=== PATIENT | female | born 1955 | race Caucasian/White ===

== ENCOUNTER → 2023-12-30 | Emergency (ER) | payer OTHER ==
[~2023-12-30] MED LIST: CEFTRIAXONE 1000 MG/VIAL ONE; LIDOCAINE 1% MPF 2 ML AMPULE ONE; SMZ./TMP. 800/160 MG TABLET ONE
--- OUTSIDE RECORDS SUMMARY | 2023-12-30 22:15 | XMS REPORT | Continuity of Care Document ---
Author Name Unknown Address [address] [facility] [address] [place] [address] [facility] thconnect Address [address] [facility] [address] [place] [address] Care Team Providers Care Central Station Operator Name Role Phone Sury Augustin Primary Care Physician Jennifer Cruz Attending Clinician Unavailable SURY AUGUSTIN Attending Clinician Unavailable SURY AUGUSTIN Attending Clinician Unavailable SAMIA SALCEDO Attending Clinician Unavailable Pob, Ad[facility] Lab Main Attending Clinician Unavailabl e Lab, Ang - Db Attending Clinician Unavailable Jessica Caceres MD Attending Clinician + [phone] RADIOLOGY Attending Clinician Unavailable Radiology Attending Clinician Unavailable Doctor Unassigned, [place] Attending Clinician U navailable Gurdeep Osborn Attending Clinician JESSICA Zeng Admitting Clinician UnavailSURY [place] Admitting Clinician Unavailable Gurdeep Osborn Admitting Clinician Mary Beth orozco Payers Payer Name Policy Type Policy Number Effective Date Expirati on Date Source [facility] [id number] 2023 00:00:00 Problems Condition Name Condition Details Condition Category Status Onset Date Resolution Date Last Treatment Date Treating Clinician Comments Source Nontraumat ic complete tear of left rotator cuff Nontraumat ic complete tear of left rotator cuff Disease Active 2022-11 00:00: 00 Last Assessmen t & Plan: Formattin g of this note might be different from the original. Surgery risks, benefits, and alternati ves were discussed with the patient regarding operative intervent ion. Risks include but are not limited to pain, bleeding, scarring, infection , damage to nerves, arteries, veins, failure of procedure , possible loosening , migration , or hardware failure, possible choice of implants ([place], [place] [employer] [place]), possible painful or prominent hardware, joint stiffness , need for further procedure s, nonunion, malunion, dislocati on, loss of limb, heart attack, stroke and . Patient voiced understan ding and wished to proceed with operative intervent ions.Left shoulder arthrosco py, SAD, biceps and labral debrideme nt, and rotator cuff repair [facility] Partial nontraumat ic tear of left rotator cuff Partial nontraumat ic tear of left rotator cuff Disease Active 07-17 00:00: 00 [facility] Impingemen t syndrome of shoulder, left Impingemen t syndrome of shoulder, left Disease Active 07-17 00:00: 00 Last Assessmen t & Plan: Formattin g of this note might be different from the original. Patient has attempted conservat prince measures including therapy, injection , and/or NSAIDs but is still having pain. We will obtain an MRI to further evaluate. [facility] Left shoulder pain Left shoulder pain Disease Active 07-17 00:00: 00 [facility] Left shoulder pain Left shoulder pain Disease Active 07-17 00:00: 00 [facility] Hypertensi on HTN (hypertens ion) Problem Active [facility] Sleep apnea Sleep apnea Problem Active [facility] Cholelithi asis without obstructio n [place] stone without cholecysti tis or obstructio n Problem Active [facility] [id number] Primary hypertensi on Problem Active [facility] [id number] BMI 50.0-59.9, adult Problem Active [facility] [id number] Primary osteoarthr itis of both knees Problem Active [facility] [id number] Mixed hyperlipid emia Problem Active [facility] [id number] Morbid (severe) obesity due to excess calories Problem Active [facility] No known active problems No known active problems Disease [facility] Allergies, Adverse Reactions, Alerts Allergy Name Allergy Type Status Severity Reaction(s) Onset Date Inactive Date Treating Clinician Comments Source No Known Allergie s DA Active U 2021-11 00:00: 00 [facility] NO KNOWN ALLERGIE S Drug Class Active [facility] Social History Social Habit Start Date Stop Date Quantity Comments Source Sexual orientation [facility] History of Tobacco Use [facility] Gender identity [facility] Alcoholic beverage intake 2023-11-19 00:00:00 2023-11-19 00:00:00 Lifetime non-drinker (finding) [facility] History of Social function 2023-11-11 00:00:00 2023-11-11 00:00:00 [facility] Alcohol intake 2023-10-05 00:00:00 2023-10-05 00:00:00 Lifetime non-drinker (finding) [facility] Exposure to SARS-CoV-2 (event) 2022-11-20 00:00:00 2022-11-30 13:29:00 Not sure [facility] Tobacco use and exposure 2022-11-30 00:00:00 2022-11-30 00:00:00 Smokeless tobacco non-user [facility] Sex assigned at 1955 00:00:00 1955 00:00:00 [facility] Smoking Status Start Date Stop Date Source Tobacco smoking consumption unknown [facility] Never smoked tobacco [facility] Medications Ordered Medication Name Filled Medication Name Start Date Stop Date Current Medication? Ordering Clinician Indication Dosage Frequency Signature (SIG) Comments Components Source lisinopril 40 MG tablet 11-11 14:34: 46 Yes 40mg Take 40 mg by mouth every night. [facility] loratadine (Claritin) 10 MG tablet 11-11 14:34: 46 Yes 10mg Take 10 mg by mouth. [facility] acetaminoph en (Tylenol) 500 MG tablet 2023-0 105 14:34: 46 Yes 500mg Q6H 500 mg every 6 (six) hours. [facility] atenoloL 25 mg tablet 2022-11 00:00: 00 Yes 25mg Take 1 tablet by mouth in the morning. [facility] atenoloL 25 mg tablet 2022-11 00:00: 00 Yes 25mg Take 1 tablet by mouth in the morning. [facility] atenoloL 25 mg tablet 2022-11 00:00: 00 Yes 25mg Take 1 tablet by mouth in the morning. [facility] atenoloL 25 mg tablet 2022-11 00:00: 00 Yes 25mg Take 1 tablet by mouth in the morning. [facility] atenoloL 25 mg tablet 2022-11 00:00: 00 Yes 25mg Take 1 tablet by mouth in the morning. [facility] atenoloL 25 mg tablet 2022-11 00:00: 00 Yes 25mg Take 1 tablet by mouth in the morning. [facility] atenoloL 25 mg tablet 2022-11 00:00: 00 Yes 25mg Take 1 tablet by mouth in the morning. [facility] atenoloL 25 mg tablet 2022-11 00:00: 00 Yes 25mg Take 1 tablet by mouth in the morning. [facility] atenoloL 25 mg tablet 2022-11 00:00: 00 Yes 25mg Take 1 tablet by mouth in the morning. [facility] atenoloL 25 mg tablet 2022-11 00:00: 00 Yes 25mg Take 1 tablet by mouth in the morning. [facility] atenoloL 25 mg tablet 2022-11 00:00: 00 Yes 25mg Take 1 tablet by mouth in the morning. [facility] atenoloL 25 mg tablet 2022-11 00:00: 00 Yes 25mg Take 1 tablet by mouth in the morning. [facility] atenoloL 25 mg tablet 2022-11 00:00: 00 Yes 25mg Take 1 tablet by mouth in the morning. [facility] atenoloL 25 mg tablet 2022-11 00:00: 00 Yes 25mg Take 1 tablet by mouth in the morning. [facility] atenoloL 25 mg tablet 2022-11 00:00: 00 Yes 25mg Take 1 tablet by mouth in the morning. [facility] atenoloL 25 mg tablet 2022-11 00:00: 00 Yes 25mg Take 1 tablet by mouth in the morning. [facility] atenoloL 25 mg tablet 2022-11 00:00: 00 Yes 25mg Take 1 tablet by mouth in the morning. [facility] lisinopril 40 MG tablet 2022-11 17:10: 16 Yes 40mg Take 40 mg by mouth every night. [facility] loratadine (Claritin) 10 MG tablet 2022-11 17:10: 16 Yes 10mg Take 10 mg by mouth. [facility] acetaminoph en (Tylenol) 500 MG tablet 2022-11 17:10: 16 Yes 500mg Q6H 500 mg every 6 (six) hours. [facility] traMADoL 50 mg tablet 2022-11 00:00: 00 Yes 50mg Take 1 tablet by mouth every 4 (four) hours as needed. [facility] traMADoL 50 mg tablet 2022-11 00:00: 00 Yes 50mg Take 1 tablet by mouth every 4 (four) hours as needed. [facility] traMADoL 50 mg tablet 2022-11 00:00: 00 Yes 50mg Take 1 tablet by mouth every 4 (four) hours as needed. [facility] traMADoL 50 mg tablet 2022-11 00:00: 00 Yes 50mg Take 1 tablet by mouth every 4 (four) hours as needed. [facility] traMADoL 50 mg tablet 2022-11 00:00: 00 Yes 50mg Take 1 tablet by mouth every 4 (four) hours as needed. [facility] traMADoL 50 mg tablet 2022-11 00:00: 00 Yes 50mg Take 1 tablet by mouth every 4 (four) hours as needed. [facility] tablet 2022-11 00:00: 00 Yes 50mg Take 1 tablet by mouth every 4 (four) hours as needed. [facility] tra[facility]AD[facility] mg tablet 2022-11 00:00: 00 Yes 50mg Take 1 tablet by mouth every 4 (four) hours as needed. [facility] tra[facility] mg tablet 2022-11 00:00: 00 Yes 50mg Take 1 tablet by mouth every 4 (four) hours as needed. [facility] traMADoL 50 mg tablet 2022-11 00:00: 00 Yes 50mg Take 1 tablet by mouth every 4 (four) hours as needed. [facility] traMADoL 50 mg tablet 2022-11 00:00: 00 Yes 50mg Take 1 tablet by mouth every 4 (four) hours as needed. [facility] traMADoL 50 mg tablet 2022-11 00:00: 00 Yes 50mg Take 1 tablet by mouth every 4 (four) hours as needed. [facility] traMADoL 50 mg tablet 2022-11 00:00: 00 Yes 50mg Take 1 tablet by mouth every 4 (four) hours as needed. [facility] traMADoL 50 mg tablet 2022-11 00:00: 00 Yes 50mg Take 1 tablet by mouth every 4 (four) hours as needed. [facility] traMADoL 50 mg tablet 2022-11 00:00: 00 Yes 50mg Take 1 tablet by mouth every 4 (four) hours as needed. [facility] traMADoL 50 mg tablet 2022-11 00:00: 00 Yes 50mg Take 1 tablet by mouth every 4 (four) hours as needed. [facility] traMADoL 50 mg tablet 2022-11 00:00: 00 Yes 50mg Take 1 tablet by mouth every 4 (four) hours as needed. [facility] traMADoL 50 mg tablet 2022-11 00:00: 00 Yes 50mg Take 1 tablet by mouth every 4 (four) hours as needed. [facility] traMADoL 50 mg tablet 2022-11 00:00: 00 Yes 50mg Take 1 tablet by mouth every 4 (four) hours as needed. [facility] traMADol (Ultram) 50 MG tablet 2022-11 00:00: 00 10-06 05:59 :00 No [id number] 50mg Q6H Take 1 tablet (50 mg total) by mouth every 6 (six) hours if needed for severe pain for up to 7 days. [facility] lisinopriL 40 mg tablet 07-18 00:00: 00 Yes [id number] 40mg Take 1 tablet by mouth at bedtime. [facility] lisinopriL 40 mg tablet 07-18 00:00: 00 Yes [id number] 40mg Take 1 tablet by mouth at bedtime. [facility] lisinopriL 40 mg tablet 07-18 00:00: 00 Yes [id number] 40mg Take 1 tablet by mouth at bedtime. [facility] lisinopriL 40 mg tablet 07-18 00:00: 00 Yes [id number] 40mg Take 1 tablet by mouth at bedtime. [facility] lisinopriL 40 mg tablet 07-18 00:00: 00 Yes [id number] 40mg Take 1 tablet by mouth at bedtime. [facility] lisinopriL 40 mg tablet 0 07-18 00:00: 00 Yes [id number] 40mg Take 1 tablet by mouth at bedtime. [facility] lisinopriL 40 mg tablet 0 07-18 00:00: 00 Yes [id number] 40mg Take 1 tablet by mouth at bedtime. [facility] lisinopriL 40 mg tablet 0 07-18 00:00: 00 Yes [id number] 40mg Take 1 tablet by mouth at bedtime. [facility] lisinopriL 40 mg tablet 0 07-18 00:00: 00 Yes [id number] 40mg Take 1 tablet by mouth at bedtime. [facility] lisinopriL 40 mg tablet 3-0 9-11 00:00: 00 Yes [id number] 40mg Take 1 tablet by mouth at bedtime. [facility] lisinopriL 40 mg tablet 3-0 9-11 00:00: 00 Yes [id number] 40mg Take 1 tablet by mouth at bedtime. [facility] lisinopriL 40 mg tablet 3-0 9-11 00:00: 00 Yes [id number] 40mg Take 1 tablet by mouth at bedtime. [facility] lisinopriL 40 mg tablet 3-0 9-11 00:00: 00 Yes [id number] 40mg Take 1 tablet by mouth at bedtime. [facility] lisinopriL 40 mg tablet 3-0 -11 00:00: 00 Yes [id number] 40mg Take 1 tablet by mouth at bedtime. [facility] lisinopriL 40 mg tablet 3-0 -11 00:00: 00 Yes [id number] 40mg Take 1 tablet by mouth at bedtime. [facility] lisinopriL 40 mg tablet 3-0 -11 00:00: 00 Yes [id number] 40mg Take 1 tablet by mouth at bedtime. [facility] lisinopriL 40 mg tablet 3-0 -11 00:00: 00 Yes [id number] 40mg Take 1 tablet by mouth at bedtime. [facility] lisinopriL 40 mg tablet 3-0 -11 00:00: 00 Yes [id number] 40mg Take 1 tablet by mouth at bedtime. [facility] lisinopriL 40 mg tablet 3-0 9-11 00:00: 00 Yes [id number] 40mg Take 1 tablet by mouth at bedtime. [facility] lisinopriL 40 mg tablet 3-0 9-11 00:00: 00 Yes [id number] 40mg Take 1 tablet by mouth at bedtime. [facility] lisinopriL 40 mg tablet 3-0 9-11 00:00: 00 Yes [id number] 40mg Take 1 tablet by mouth at bedtime. [facility] lisinopriL 40 mg tablet 07-18 00:00: 00 Yes [id number] 40mg Take 1 tablet by mouth at bedtime. [facility] lisinopriL 40 mg tablet 07-18 00:00: 00 Yes [id number] 40mg Take 1 tablet by mouth at bedtime. [facility] lisinopriL 40 mg tablet 07-18 00:00: 00 Yes [id number] 40mg Take 1 tablet by mouth at bedtime. [facility] lisinopriL 40 mg tablet 07-18 00:00: 00 Yes [id number] 40mg Take 1 tablet by mouth at bedtime. [facility] lisinopriL 40 mg tablet 07-18 00:00: 00 Yes [id number] 40mg Take 1 tablet by mouth at bedtime. [facility] lisinopril 40 MG tablet 07-12 11:20: 09 Yes 40mg Take 40 mg by mouth every night. [facility] loratadine (Claritin) 10 MG tablet 07-12 11:20: 09 Yes 10mg Take 10 mg by mouth. [facility] acetaminoph en (Tylenol) 500 MG tablet 07-12 11:20: 09 Yes 500mg Q6H 500 mg every 6 (six) hours. [facility] diclofenac 75 mg EC tablet 05-30 00:00: 00 Yes [id number] 75mg Take 1 tablet by mouth in the morning and 1 tablet in the evening. Take with meals. [facility] diclofenac 75 mg EC tablet 05-30 00:00: 00 Yes [id number] 75mg Take 1 tablet by mouth in the morning and 1 tablet in the evening. Take with meals. [facility] diclofenac 75 mg EC tablet 05-30 00:00: 00 Yes [id number] 75mg Take 1 tablet by mouth in the morning and 1 tablet in the evening. Take with meals. [facility] diclofenac 75 mg EC tablet 05-30 00:00: 00 Yes [id number] 75mg Take 1 tablet by mouth in the morning and 1 tablet in the evening. Take with meals. [facility] diclofenac 75 mg EC tablet 2022-0 05-30 00:00: 00 Yes [id number] 75mg Take 1 tablet by mouth in the morning and 1 tablet in the evening. Take with meals. [facility] diclofenac 75 mg EC tablet 2022-0 05-30 00:00: 00 Yes [id number] 75mg Take 1 tablet by mouth in the morning and 1 tablet in the evening. Take with meals. [facility] diclofenac 75 mg EC tablet 2022-0 05-30 00:00: 00 Yes [id number] 75mg Take 1 tablet by mouth in the morning and 1 tablet in the evening. Take with meals. [facility] diclofenac 75 mg EC tablet 2022-0 05-30 00:00: 00 Yes [id number] 75mg Take 1 tablet by mouth in the morning and 1 tablet in the evening. Take with meals. [facility] diclofenac 75 mg EC tablet 2022-0 05-30 00:00: 00 Yes [id number] 75mg Take 1 tablet by mouth in the morning and 1 tablet in the evening. Take with meals. [facility] diclofenac 75 mg EC tablet 2022-0 05-30 00:00: 00 Yes [id number] 75mg Take 1 tablet by mouth in the morning and 1 tablet in the evening. Take with meals. [facility] diclofenac 75 mg EC tablet 2022-0 05-30 00:00: 00 Yes [id number] 75mg Take 1 tablet by mouth in the morning and 1 tablet in the evening. Take with meals. [facility] diclofenac 75 mg EC tablet 3-0 24 00:00: 00 Yes [id number] 75mg Take 1 tablet by mouth in the morning and 1 tablet in the evening. Take with meals. [facility] diclofenac 75 mg EC tablet 3-0 24 00:00: 00 Yes [id number] 75mg Take 1 tablet by mouth in the morning and 1 tablet in the evening. Take with meals. [facility] diclofenac 75 mg EC tablet 2022-0 24 00:00: 00 Yes [id number] 75mg Take 1 tablet by mouth in the morning and 1 tablet in the evening. Take with meals. [facility] diclofenac 75 mg EC tablet 3-0 05-30 00:00: 00 Yes [id number] 75mg Take 1 tablet by mouth in the morning and 1 tablet in the evening. Take with meals. [facility] diclofenac 75 mg EC tablet 2022-0 05-30 00:00: 00 Yes [id number] 75mg Take 1 tablet by mouth in the morning and 1 tablet in the evening. Take with meals. [facility] diclofenac 75 mg EC tablet 2022-0 05-30 00:00: 00 Yes [id number] 75mg Take 1 tablet by mouth in the morning and 1 tablet in the evening. Take with meals. [facility] diclofenac 75 mg EC tablet 2022-0 05-30 00:00: 00 Yes [id number] 75mg Take 1 tablet by mouth in the morning and 1 tablet in the evening. Take with meals. [facility] diclofenac 75 mg EC tablet 2022-0 05-30 00:00: 00 Yes [id number] 75mg Take 1 tablet by mouth in the morning and 1 tablet in the evening. Take with meals. [facility] diclofenac 75 mg EC tablet 3-0 24 00:00: 00 Yes [id number] 75mg Take 1 tablet by mouth in the morning and 1 tablet in the evening. Take with meals. [facility] diclofenac 75 mg EC tablet 3-0 24 00:00: 00 Yes [id number] 75mg Take 1 tablet by mouth in the morning and 1 tablet in the evening. Take with meals. [facility] diclofenac 75 mg EC tablet 3-0 24 00:00: 00 Yes [id number] 75mg Take 1 tablet by mouth in the morning and 1 tablet in the evening. Take with meals. [facility] diclofenac 75 mg EC tablet 3-0 7-24 00:00: 00 Yes [id number] 75mg Take 1 tablet by mouth in the morning and 1 tablet in the evening. Take with meals. [facility] diclofenac 75 mg EC tablet 0 05-30 00:00: 00 Yes [id number] 75mg Take 1 tablet by mouth in the morning and 1 tablet in the evening. Take with meals. [facility] diclofenac 75 mg EC tablet 0 05-30 00:00: 00 Yes [id number] 75mg Take 1 tablet by mouth in the morning and 1 tablet in the evening. Take with meals. [facility] diclofenac 75 mg EC tablet 0 05-30 00:00: 00 Yes [id number] 75mg Take 1 tablet by mouth in the morning and 1 tablet in the evening. Take with meals. [facility] diclofenac (Voltaren) 75 MG EC tablet 05-30 00:00: 00 Yes 1{tbl} Take 1 tablet by mouth in the morning and 1 tablet in the evening. Take with meals. [facility] diclofenac (Voltaren) 75 MG EC tablet 0 05-30 00:00: 00 Yes 1{tbl} Take 1 tablet by mouth in the morning and 1 tablet in the evening. Take with meals. [facility] diclofenac (Voltaren) 75 MG EC tablet 0 05-30 00:00: 00 Yes 1{tbl} Take 1 tablet by mouth in the morning and 1 tablet in the evening. Take with meals. [facility] lisinopriL 40 mg tablet 04-28 10:12: 46 04-28 00:00 :00 No 40mg Take 40 mg by mouth in the morning. [facility] lisinopriL 40 mg tablet 0 04-28 00:00: 00 Yes [id number] 40mg Take 1 tablet by mouth in the morning. [facility] lisinopriL 40 mg tablet 0 04-28 00:00: 00 05-30 00:00 :00 No [id number] 40mg Take 1 tablet by mouth in the morning. [facility] lisinopriL 40 mg tablet 202204-28 00:00: 00 05-30 00:00 :00 No [id number] 40mg Take 1 tablet by mouth in the morning. [facility] diclofenac 75 mg EC tablet 04-08 00:00: 00 Yes [id number] 75mg Take 1 tablet by mouth in the morning. [facility] diclofenac 75 mg EC tablet 04-08 00:00: 00 Yes [id number] 75mg Take 1 tablet by mouth in the morning. [facility] diclofenac 75 mg EC tablet 04-08 00:00: 00 05-30 00:00 :00 No [id number] 75mg Take 1 tablet by mouth in the morning. [facility] diclofenac 75 mg EC tablet 04-08 00:00: 00 05-30 00:00 :00 No [id number] 75mg Take 1 tablet by mouth in the morning. [facility] diclofenac 75 mg EC tablet 12-31 00:00: 00 Yes [id number] 75mg Take 1 tablet by mouth in the morning. [facility] diclofenac 75 mg EC tablet 12-31 00:00: 00 Yes [id number] 75mg Take 1 tablet by mouth in the morning. [facility] diclofenac 75 mg EC tablet 12-31 00:00: 00 Yes [id number] 75mg Take 1 tablet by mouth in the morning. [facility] diclofenac 75 mg EC tablet 0 24 00:00: 00 Yes [id number] 75mg Take 1 tablet by mouth in the morning. [facility] diclofenac 75 mg EC tablet 0 24 00:00: 00 Yes [id number] 75mg Take 1 tablet by mouth in the morning. [facility] diclofenac 75 mg EC tablet 0 24 00:00: 00 Yes [id number] 75mg Take 1 tablet by mouth in the morning. [facility] diclofenac 75 mg EC tablet 2-24 00:00: 00 Yes [id number] 75mg Take 1 tablet by mouth in the morning. [facility] diclofenac 75 mg EC tablet 24 00:00: 00 Yes [id number] 75mg Take 1 tablet by mouth in the morning. [facility] diclofenac 75 mg EC tablet 224 00:00: 00 Yes [id number] 75mg Take 1 tablet by mouth in the morning. [facility] diclofenac 75 mg EC tablet 24 00:00: 00 Yes [id number] 75mg Take 1 tablet by mouth in the morning. [facility] diclofenac 75 mg EC tablet 24 00:00: 00 Yes [id number] 75mg Take 1 tablet by mouth in the morning. [facility] diclofenac 75 mg EC tablet 24 00:00: 00 Yes [id number] 75mg Take 1 tablet by mouth in the morning. [facility] diclofenac 75 mg EC tablet 24 00:00: 00 Yes [id number] 75mg Take 1 tablet by mouth in the morning. [facility] diclofenac 75 mg EC tablet 24 00:00: 00 04-08 00:00 :00 No [id number] 75mg Take 1 tablet by mouth in the morning. [facility] diclofenac 75 mg EC tablet 24 00:00: 00 12-08 00:00 :00 No [id number] 75mg Take 1 tablet by mouth in the morning. [facility] loratadine (CLARITIN) 10 mg tablet 11-30 13:45: 40 Yes 10mg Take 10 mg by mouth in the morning. [facility] acetaminoph en (TYLENOL 8 HOUR ORAL) 11-30 13:45: 40 Yes Take by mouth. 500 mg 2 tablets a day [facility] loratadine (CLARITIN) 10 mg tablet 11-30 13:45: 40 Yes 10mg Take 10 mg by mouth in the morning. [facility] acetaminoph en (TYLENOL 8 HOUR ORAL) 11-30 13:45: 40 Yes Take by mouth. 500 mg 2 tablets a day [facility] loratadine (CLARITIN) 10 mg tablet 11-30 13:45: 40 Yes 10mg Take 10 mg by mouth in the morning. [facility] acetaminoph en (TYLENOL 8 HOUR ORAL) 11-30 13:45: 40 Yes Take by mouth. 500 mg 2 tablets a day [facility] loratadine (CLARITIN) 10 mg tablet 11-30 13:45: 40 Yes 10mg Take 10 mg by mouth in the morning. [facility] acetaminoph en (TYLENOL 8 HOUR ORAL) 11-30 13:45: 40 Yes Take by mouth. 500 mg 2 tablets a day [facility] loratadine (CLARITIN) 10 mg tablet 11-30 13:45: 40 Yes 10mg Take 10 mg by mouth in the morning. [facility] acetaminoph en (TYLENOL 8 HOUR ORAL) 11-30 13:45: 40 Yes Take by mouth. 500 mg 2 tablets a day [facility] loratadine (CLARITIN) 10 mg tablet 11-30 13:45: 40 Yes 10mg Take 10 mg by mouth in the morning. [facility] acetaminoph en (TYLENOL 8 HOUR ORAL) 11-30 13:45: 40 Yes Take by mouth. 500 mg 2 tablets a day [facility] loratadine (CLARITIN) 10 mg tablet 11-30 13:45: 40 Yes 10mg Take 10 mg by mouth in the morning. [facility] acetaminoph en (TYLENOL 8 HOUR ORAL) 11-30 13:45: 40 Yes Take by mouth. 500 mg 2 tablets a day [facility] loratadine (CLARITIN) 10 mg tablet 11-30 13:45: 40 Yes 10mg Take 10 mg by mouth in the morning. [facility] acetaminoph en (TYLENOL 8 HOUR ORAL) 11-30 13:45: 40 Yes Take by mouth. 500 mg 2 tablets a day [facility] loratadine (CLARITIN) 10 mg tablet 11-30 13:45: 40 Yes 10mg Take 10 mg by mouth in the morning. [facility] acetaminoph en (TYLENOL 8 HOUR ORAL) 11-30 13:45: 40 Yes Take by mouth. 500 mg 2 tablets a day [facility] loratadine (CLARITIN) 10 mg tablet 11-30 13:45: 40 Yes 10mg Take 10 mg by mouth in the morning. [facility] acetaminoph en (TYLENOL 8 HOUR ORAL) 11-30 13:45: 40 Yes Take by mouth. 500 mg 2 tablets a day [facility] loratadine (CLARITIN) 10 mg tablet 11-30 13:45: 40 Yes 10mg Take 10 mg by mouth in the morning. [facility] acetaminoph en (TYLENOL 8 HOUR ORAL) 11-30 13:45: 40 Yes Take by mouth. 500 mg 2 tablets a day [facility] loratadine (CLARITIN) 10 mg tablet 11-30 13:45: 40 Yes 10mg Take 10 mg by mouth in the morning. [facility] acetaminoph en (TYLENOL 8 HOUR ORAL) 11-30 13:45: 40 Yes Take by mouth. 500 mg 2 tablets a day [facility] loratadine (CLARITIN) 10 mg tablet 11-30 13:45: 40 Yes 10mg Take 10 mg by mouth in the morning. [facility] acetaminoph en (TYLENOL 8 HOUR ORAL) 11-30 13:45: 40 Yes Take by mouth. 500 mg 2 tablets a day [facility] loratadine (CLARITIN) 10 mg tablet 11-30 13:45: 40 Yes 10mg Take 10 mg by mouth in the morning. [facility] loratadine (CLARITIN) 10 mg tablet 11-30 13:45: 40 Yes 10mg Take 10 mg by mouth in the morning. [facility] acetaminoph en (TYLENOL 8 HOUR ORAL) 11-30 13:45: 40 Yes Take by mouth. 500 mg 2 tablets a day [facility] loratadine (CLARITIN) 10 mg tablet 11-30 13:45: 40 Yes 10mg Take 10 mg by mouth in the morning. [facility] acetaminoph en (TYLENOL 8 HOUR ORAL) 11-30 13:45: 40 Yes Take by mouth. 500 mg 2 tablets a day [facility] acetaminoph en (TYLENOL 8 HOUR ORAL) 11-30 13:45: 40 Yes Take by mouth. 500 mg 2 tablets a day [facility] loratadine (CLARITIN) 10 mg tablet 11-30 13:45: 40 Yes 10mg Take 10 mg by mouth in the morning. [facility] acetaminoph en (TYLENOL 8 HOUR ORAL) 11-30 13:45: 40 Yes Take by mouth. 500 mg 2 tablets a day [facility] loratadine (CLARITIN) 10 mg tablet 11-30 13:45: 40 Yes 10mg Take 10 mg by mouth in the morning. [facility] acetaminoph en (TYLENOL 8 HOUR ORAL) 11-30 13:45: 40 Yes Take by mouth. 500 mg 2 tablets a day [facility] loratadine (CLARITIN) 10 mg tablet 11-30 13:45: 40 Yes 10mg Take 10 mg by mouth in the morning. [facility] acetaminoph en (TYLENOL 8 HOUR ORAL) 11-30 13:45: 40 Yes Take by mouth. 500 mg 2 tablets a day [facility] loratadine (CLARITIN) 10 mg tablet 11-30 13:45: 40 Yes 10mg Take 10 mg by mouth in the morning. [facility] acetaminoph en (TYLENOL 8 HOUR ORAL) 11-30 13:45: 40 Yes Take by mouth. 500 mg 2 tablets a day [facility] loratadine (CLARITIN) 10 mg tablet 11-30 13:45: 40 Yes 10mg Take 10 mg by mouth in the morning. [facility] acetaminoph en (TYLENOL 8 HOUR ORAL) 11-30 13:45: 40 Yes Take by mouth. 500 mg 2 tablets a day [facility] loratadine (CLARITIN) 10 mg tablet 11-30 13:45: 40 Yes 10mg Take 10 mg by mouth in the morning. [facility] acetaminoph en (TYLENOL 8 HOUR ORAL) 11-30 13:45: 40 Yes Take by mouth. 500 mg 2 tablets a day [facility] loratadine (CLARITIN) 10 mg tablet 11-30 13:45: 40 Yes 10mg Take 10 mg by mouth in the morning. [facility] acetaminoph en (TYLENOL 8 HOUR ORAL) 11-30 13:45: 40 Yes Take by mouth. 500 mg 2 tablets a day [facility] loratadine (CLARITIN) 10 mg tablet 11-30 13:45: 40 Yes 10mg Take 10 mg by mouth in the morning. [facility] acetaminoph en (TYLENOL 8 HOUR ORAL) 11-30 13:45: 40 Yes Take by mouth. 500 mg 2 tablets a day [facility] loratadine (CLARITIN) 10 mg tablet 11-30 13:45: 40 Yes 10mg Take 10 mg by mouth in the morning. [facility] loratadine (CLARITIN) 10 mg tablet 11-30 13:45: 40 Yes 10mg Take 10 mg by mouth in the morning. [facility] acetaminoph en (TYLENOL 8 HOUR ORAL) 11-30 13:45: 40 Yes Take by mouth. 500 mg 2 tablets a day [facility] acetaminoph en (TYLENOL 8 HOUR ORAL) 11-30 13:45: 40 Yes Take by mouth. 500 mg 2 tablets a day [facility] loratadine (CLARITIN) 10 mg tablet 11-30 13:45: 40 Yes 10mg Take 10 mg by mouth in the morning. [facility] acetaminoph en (TYLENOL 8 HOUR ORAL) 11-30 13:45: 40 Yes Take by mouth. 500 mg 2 tablets a day [facility] loratadine (CLARITIN) 10 mg tablet 11-30 13:45: 40 Yes 10mg Take 10 mg by mouth in the morning. [facility] acetaminoph en (TYLENOL 8 HOUR ORAL) 11-30 13:45: 40 Yes Take by mouth. 500 mg 2 tablets a day [facility] loratadine (CLARITIN) 10 mg tablet 11-30 13:45: 40 Yes 10mg Take 10 mg by mouth in the morning. [facility] acetaminoph en (TYLENOL 8 HOUR ORAL) 11-30 13:45: 40 Yes Take by mouth. 500 mg 2 tablets a day [facility] loratadine (CLARITIN) 10 mg tablet 11-30 13:45: 40 Yes 10mg Take 10 mg by mouth in the morning. [facility] acetaminoph en (TYLENOL 8 HOUR ORAL) 11-30 13:45: 40 Yes Take by mouth. 500 mg 2 tablets a day [facility] loratadine (CLARITIN) 10 mg tablet 11-30 13:45: 40 Yes 10mg Take 10 mg by mouth in the morning. [facility] acetaminoph en (TYLENOL 8 HOUR ORAL) 11-30 13:45: 40 Yes Take by mouth. 500 mg 2 tablets a day [facility] loratadine (CLARITIN) 10 mg tablet 11-30 13:45: 40 Yes 10mg Take 10 mg by mouth in the morning. [facility] loratadine (CLARITIN) 10 mg tablet 11-30 13:45: 40 Yes 10mg Take 10 mg by mouth in the morning. [facility] acetaminoph en (TYLENOL 8 HOUR ORAL) 11-30 13:45: 40 Yes Take by mouth. 500 mg 2 tablets a day [facility] acetaminoph en (TYLENOL 8 HOUR ORAL) 11-30 13:45: 40 Yes Take by mouth. 500 mg 2 tablets a day [facility] loratadine (CLARITIN) 10 mg tablet 11-30 13:45: 40 Yes 10mg Take 10 mg by mouth in the morning. [facility] acetaminoph en (TYLENOL 8 HOUR ORAL) 11-30 13:45: 40 Yes Take by mouth. 500 mg 2 tablets a day [facility] loratadine (CLARITIN) 10 mg tablet 11-30 13:45: 40 Yes 10mg Take 10 mg by mouth in the morning. [facility] acetaminoph en (TYLENOL 8 HOUR ORAL) 11-30 13:45: 40 Yes Take by mouth. 500 mg 2 tablets a day [facility] loratadine (CLARITIN) 10 mg tablet 11-30 13:45: 40 Yes 10mg Take 10 mg by mouth in the morning. [facility] acetaminoph en (TYLENOL 8 HOUR ORAL) 11-30 13:45: 40 Yes Take by mouth. 500 mg 2 tablets a day [facility] loratadine (CLARITIN) 10 mg tablet 11-30 13:45: 40 Yes 10mg Take 10 mg by mouth in the morning. [facility] acetaminoph en (TYLENOL 8 HOUR ORAL) 11-30 13:45: 40 Yes Take by mouth. 500 mg 2 tablets a day [facility] loratadine (CLARITIN) 10 mg tablet 11-30 13:45: 40 Yes 10mg Take 10 mg by mouth in the morning. [facility] acetaminoph en (TYLENOL 8 HOUR ORAL) 11-30 13:45: 40 Yes Take by mouth. 500 mg 2 tablets a day [facility] loratadine (CLARITIN) 10 mg tablet 11-30 13:45: 40 Yes 10mg Take 10 mg by mouth in the morning. [facility] acetaminoph en (TYLENOL 8 HOUR ORAL) 11-30 13:45: 40 Yes Take by mouth. 500 mg 2 tablets a day [facility] loratadine (CLARITIN) 10 mg tablet 11-30 13:45: 40 Yes 10mg Take 10 mg by mouth in the morning. [facility] acetaminoph en (TYLENOL 8 HOUR ORAL) 11-30 13:45: 40 Yes Take by mouth. 500 mg 2 tablets a day [facility] loratadine (CLARITIN) 10 mg tablet 11-30 13:45: 40 Yes 10mg Take 10 mg by mouth in the morning. [facility] acetaminoph en (TYLENOL 8 HOUR ORAL) 11-30 13:45: 40 Yes Take by mouth. 500 mg 2 tablets a day [facility] lisinopriL 40 mg tablet 11-30 13:43: 20 Yes 40mg Take 40 mg by mouth in the morning. [facility] lisinopriL 40 mg tablet 11-30 13:43: 20 Yes 40mg Take 40 mg by mouth in the morning. [facility] lisinopriL 40 mg tablet 11-30 13:43: 20 Yes 40mg Take 40 mg by mouth in the morning. [facility] lisinopriL 40 mg tablet 11-30 13:43: 20 Yes 40mg Take 40 mg by mouth in the morning. [facility] lisinopriL 40 mg tablet 11-30 13:43: 20 Yes 40mg Take 40 mg by mouth in the morning. [facility] lisinopriL 40 mg tablet 11-30 13:43: 20 Yes 40mg Take 40 mg by mouth in the morning. [facility] lisinopriL 40 mg tablet 11-30 13:43: 20 Yes 40mg Take 40 mg by mouth in the morning. [facility] lisinopriL 40 mg tablet 0 11-30 13:43: 20 Yes 40mg Take 40 mg by mouth in the morning. [facility] lisinopriL 40 mg tablet 0 11-30 13:43: 20 Yes 40mg Take 40 mg by mouth in the morning. [facility] lisinopriL 40 mg tablet 0 11-30 13:43: 20 Yes 40mg Take 40 mg by mouth in the morning. [facility] lisinopriL 40 mg tablet 0 11-30 13:43: 20 Yes 40mg Take 40 mg by mouth in the morning. [facility] lisinopriL 40 mg tablet 0 11-30 13:43: 20 Yes 40mg Take 40 mg by mouth in the morning. [facility] lisinopriL 40 mg tablet 0 11-30 13:43: 20 Yes 40mg Take 40 mg by mouth in the morning. [facility] lisinopriL 40 mg tablet 0 11-30 13:43: 20 Yes 40mg Take 40 mg by mouth in the morning. [facility] diclofenac 75 mg EC tablet 11-23 00:00: 00 Yes [facility] diclofenac 75 mg EC tablet 0 11-23 00:00: 00 Yes [facility] diclofenac 75 mg EC tablet 0 11-23 00:00: 00 Yes [facility] diclofenac 75 mg EC tablet 0 11-23 00:00: 00 12-08 00:00 :00 No [facility] diclofenac 75 mg EC tablet 0 17 00:00: 00 12-08 00:00 :00 No [facility] atenoloL 25 mg tablet 0 11-17 00:00: 00 Yes [facility] atenoloL 25 mg tablet 0 11-17 00:00: 00 Yes [facility] atenoloL 25 mg tablet 0 11-17 00:00: 00 Yes [facility] atenoloL 25 mg tablet 3-0 11-17 00:00: 00 Yes [facility] atenoloL 25 mg tablet 2022-0 11-17 00:00: 00 Yes [facility] atenoloL 25 mg tablet 2022-0 11-17 00:00: 00 Yes [facility] atenoloL 25 mg tablet 2022-0 11-17 00:00: 00 Yes [facility] atenoloL 25 mg tablet 2022-0 11-17 00:00: 00 Yes [facility] atenoloL 25 mg tablet 2022-0 11-17 00:00: 00 Yes [facility] atenoloL 25 mg tablet 2022-0 11-17 00:00: 00 Yes [facility] atenoloL 25 mg tablet 2022-0 11-17 00:00: 00 Yes [facility] atenoloL 25 mg tablet 2022-0 11-17 00:00: 00 Yes [facility] atenoloL 25 mg tablet 2022-0 11-17 00:00: 00 Yes [facility] atenoloL 25 mg tablet 2022-0 11-17 00:00: 00 Yes [facility] atenoloL 25 mg tablet 2022-0 11-17 00:00: 00 Yes [facility] atenoloL 25 mg tablet 2022-0 11-17 00:00: 00 Yes [facility] atenoloL 25 mg tablet 2022-0 11-17 00:00: 00 Yes [facility] atenoloL 25 mg tablet 2022-0 11-17 00:00: 00 Yes [facility] atenoloL 25 mg tablet 2022-0 11-17 00:00: 00 Yes [facility] atenoloL 25 mg tablet 2022-0 11-17 00:00: 00 Yes [facility] atenoloL 25 mg tablet 2022-0 11-17 00:00: 00 Yes [facility] atenoloL 25 mg tablet 11-17 00:00: 00 Yes [facility] atenoloL 25 mg tablet 11-17 00:00: 00 Yes [facility] atenoloL 25 mg tablet 11-17 00:00: 00 Yes [facility] atenolol (Tenormin) 25 MG tablet 11-17 00:00: 00 Yes [facility] atenolol (Tenormin) 25 MG tablet 11-17 00:00: 00 Yes [facility] atenolol (Tenormin) 25 MG tablet 11-17 00:00: 00 Yes [facility] atenoloL 25 mg tablet 11-17 00:00: 00 10-28 00:00 :00 No [facility] Claritin 10 MG Claritin 10 MG No 1{table t} QD Claritin 10 MG Lisinopril 40 MG Lisinopril 40 MG No 1{table t} QD Lisinopril 40 MG Atenolol 25 MG Atenolol 25 MG No 1{table t} QD Atenolol 25 MG Tylenol Extra Strength 500 MG Tylenol Extra Strength 500 MG No 2{table t_as_ne eded} QID Tylenol Extra Strength 500 MG Diclofenac Sodium 75 MG Diclofenac Sodium 75 MG No Diclofenac Sodium 75 MG Claritin 10 MG Claritin 10 MG No 1{table t} QD Claritin 10 MG Lisinopril 40 MG Lisinopril 40 MG No 1{table t} QD Lisinopril 40 MG Atenolol 25 MG Atenolol 25 MG No 1{table t} QD Atenolol 25 MG Tylenol Extra Strength 500 MG Tylenol Extra Strength 500 MG No 2{table t_as_ne eded} QID Tylenol Extra Strength 500 MG Diclofenac Sodium 75 MG Diclofenac Sodium 75 MG No Diclofenac Sodium 75 MG Claritin 10 MG Claritin 10 MG No 1{table t} QD Claritin 10 MG Lisinopril 40 MG Lisinopril 40 MG No 1{table t} QD Lisinopril 40 MG Atenolol 25 MG Atenolol 25 MG No 1{table t} QD Atenolol 25 MG Tylenol Extra Strength 500 MG Tylenol Extra Strength 500 MG No 2{table t_as_ne eded} QID Tylenol Extra Strength 500 MG Claritin 10 MG Claritin 10 MG No 1{table t} QD Claritin 10 MG Lisinopril 40 MG Lisinopril 40 MG No 1{table t} QD Lisinopril 40 MG Atenolol 25 MG Atenolol 25 MG No 1{table t} QD Atenolol 25 MG Tylenol Extra Strength 500 MG Tylenol Extra Strength 500 MG No 2{table t_as_ne eded} QID Tylenol Extra Strength 500 MG Diclofenac Sodium 75 MG Diclofenac Sodium 75 MG No Diclofenac Sodium 75 MG Diclofenac Sodium 75 MG Diclofenac Sodium 75 MG No 1{table t_as_ne eded} Diclofenac Sodium 75 MG Diclofenac Sodium 75 MG Diclofenac Sodium 75 MG No Diclofenac Sodium 75 MG Atenolol 25 MG Atenolol 25 MG No Atenolol 25 MG Lisinopril 40 MG Lisinopril 40 MG No Lisinopril 40 MG Claritin 10 MG Claritin 10 MG No 1{table t} QD Claritin 10 MG Tylenol Extra Strength 500 MG Tylenol Extra Strength 500 MG No 2{table t_as_ne eded} QID Tylenol Extra Strength 500 MG Lisinopril 40 MG Lisinopril 40 MG No 1{table t} QD Lisinopril 40 MG Claritin 10 MG Claritin 10 MG No 1{table t} QD Claritin 10 MG Diclofenac Sodium 75 MG Diclofenac Sodium 75 MG No 1{table t_as_ne eded} Diclofenac Sodium 75 MG Atenolol 25 MG Atenolol 25 MG No 1{table t} QD Atenolol 25 MG Tylenol Extra Strength 500 MG Tylenol Extra Strength 500 MG No 2{table t_as_ne eded} QID Tylenol Extra Strength 500 MG Diclofenac Sodium 75 MG Diclofenac Sodium 75 MG No Diclofenac Sodium 75 MG Immunizations Ordered Immunization Name Filled Immunization Name Date Status Comments Source TDAP Unknown Completed [facility] TDAP Unknown Completed [facility] TDAP Unknown Completed [facility] TDAP Unknown Completed [facility] TDAP Unknown Completed [facility] TDAP Unknown Completed [facility] TDAP Unknown Completed [facility] TDAP Unknown Completed [facility] TDAP Unknown Completed [facility] TDAP Unknown Completed [facility] TDAP Unknown Completed [facility] TDAP Unknown Completed [facility] Vital Signs Vital Name Observation Time Observation Value Comments Alba raymond Systolic blood pressure 2023-12-01 20:07:00 156 mm[Hg] [facility] Diastolic blood pressure 2023-12-01 20:07:00 94 mm[Hg] [facility] Heart rate 2023-12-01 20:06:00 78 /min [facility] Body temperature 2023-12-01 20:06:00 36.72 Gloria [facility] Body height 2023-12-01 20:06:00 172.7 cm [facility] Oxygen saturation in Arterial blood by Pulse oximetry 2023-12-01 20:06:00 95 /min [facility] Body height 2023-11-11 20:34:[facility] 2023-11-11 20:34:00 [facility] BMI 2023-11-11 20:34:00 55.04 kg/m2 [facility] Systolic blood pressure 2023-10-20 21:12:00 154 mm[Hg] [facility] Diastolic blood pressure 2023-10-20 21:12:00 89 mm[Hg] [facility] Heart rate 2023-10-20 21:11:00 81 /min [facility] Body height 2023-10-20 21:11:00 172.7 cm [facility] Oxygen saturation in Arterial blood by Pulse oximetry 2023-10-20 21:11:00 97 /min [facility] Body height 2023-10-05 23:08:00 172.7 [facility] Body weight 2023-10-05 23:08:00 164[facility]202 [facility] BMI 2023-10-05 23:08:00 55.04 kg/m2 [facility] Systolic blood pressure 2023-07-22 19:27:00 171 mm[Hg] [facility] Diastolic blood pressure 2023-07-22 19:27:00 92 mm[Hg] [facility] Heart rate 2023-07-22 19:14:00 73 /min [facility] Body temperature 2023-07-22 19:14:00 36.44 Gloria [facility] Body height 2023-07-22 19:14:00 172.7 cm [facility] Oxygen saturation in Arterial blood by Pulse oximetry 2023-07-22 19:14:00 95 /min [facility] Body height 2023-07-12 16:21:00 172.7 cm [facility] Body weight 2023-07-12 16:21:00 164.202 kg [facility] BMI 2023-07-12 16:21:00 55.04 kg/m2 [facility] Systolic blood pressure 2023-05-30 16:08:00 159 mm[Hg] [facility] Diastolic blood pressure 2023-05-30 16:08:00 80 mm[Hg] [facility] Heart rate 2023-05-30 16:07:00 70 /min [facility] Body temperature 2023-05-30 16:07:00 36.56 Gloria [facility] Body height 2023-05-30 16:07:00 172.7 cm [facility] Oxygen saturation in Arterial blood by Pulse oximetry 2023-05-30 16:07:00 96 /min [facility] Systolic blood pressure 2022-11-30 19:46:00 160 mm[Hg] [facility] Diastolic blood pressure 2022-11-30 19:46:00 84 mm[Hg] [facility] Heart rate 2022-11-30 19:45:00 70 /min [facility] Body temperature 2022-11-30 19:45:00 36.83 Gloria [facility] Body height 2022-11-30 19:45:00 172.7 cm [facility] Body weight 2022-11-30 19:45:00 164.202 kg [facility] BMI 2022-11-30 19:45:00 55.04 kg/m2 [facility] Oxygen saturation in Arterial blood by Pulse oximetry 2022-11-30 19:45:00 96 /min [facility] height 2022-06-01 14:40:00 Commo n [facility] weight 2022-06-01 14:40:00 372.0 [lb_av] Co mmon [facility] temperature 2022-06-01 14:40:00 97.0 [degF] Com mon [facility] bmi 2022-06-01 14:40:00 54.93 kg/m2 Comm on [facility] oximetry 2022-06-01 14:40:00 95 % Commo n [facility] respiratory rate 2022-06-01 14:40:00 18 /min Common [facility] blood pressure systolic 2022-06-01 14:40:00 132 mm[Hg] Common [facility] blood pressure diastolic 2022-06-01 14:40:00 88 mm[Hg] Common [facility] height 2022-02-11 14:00:00 Commo n [facility] weight 2022-02-11 14:00:00 378 [lb_av] Comm on [facility] temperature 2022-02-11 14:00:00 98.0 [degF] Com [facility] bmi 2022-02-11 14:00:00 55.81 kg/m2 Comm on [facility] oximetry 2022-02-11 14:00:00 96 % Commo n [facility] respiratory rate 2022-02-11 14:00:00 18 /min Common [facility] blood pressure systolic 2022-02-11 14:00:00 135 mm[Hg] [facility] blood pressure diastolic 2022-02-11 14:00:00 80 mm[Hg] [facility] Procedures Procedure Date / Time Performed Performing Clinician Source GLYCOSYLATED HEMOGLOBIN (A1C) 2023-12-02 18:03:00 Sury Augustin [facility] CBC WITH DIFF 2023-12-02 18:03:00 Sury Augustin [facility] PROTHROMBIN TIME / INR 2023-12-02 18:02:00 Frank Augustin [facility] ACTIVATED PARTIAL THRMPLAS JOSEPH 2023-12-02 18:02:00 Sury Augustin [facility] COMP. METABOLIC PANEL (98095) 2023-12-02 18:02:00 Sury Augustin [facility] MR SHOULDER LEFT WO CONTRAST 2023-09-20 17:53:04 Jessica Caceres [facility] XR FINGERS 2 VW RIGHT 2023-07-22 20:22:00 Garcia Augustin [facility] EXTERNAL PROVIDER RECORDS 2023-02-09 05:01:00 Doctor Unassigned, [place] [facility] EXTERNAL PROVIDER RECORDS 2023-01-04 06:01:00 Doctor Unassigned, [place] [facility] EXTERNAL PROVIDER RECORDS 2022-12-14 06:01:00 Doctor Unassigned, [place] [facility] ASSIGNMENT OF BENEFITS 2022-11-30 19:29:35 Docto r Unassigned, [place] [facility] EXTERNAL PAP SMEAR 2022-02-17 05:00:00 Doctor Un assigned, [place] [facility] Encounters Start Date/Time End Date/Time Encounter Type Admission Type Attending Clinicians Care Facility Care Department Encounter ID Source 2023-05-24 12:12:53 Outpatient [facility] [id number] [facility] 2022-02-11 13:55:04 Outpatient Jennifer Cruz [facility] [id number] [facility] 2024-01-03 11:45:00 2024-01-03 11:45:00 Outpatient SAMIA SALCEDO [facility] [id number] [facility] 2023-12-06 13:00:00 2023-12-06 13:15:00 Nurse Head Visit Jose, [facility] Sury Augustin [facility] [id number] [id number] [id number] [id number] [facility] 2023-12-06 13:00:00 2023-12-06 13:00:00 Outpatient R CHARLI SURY [facility] [id number] [facility] 2023-12-06 00:00:00 2023-12-06 00:00:00 [facility] 1..840.114 350.1.13.10 4.2.7.2.686 [id number] [facility] 2023-12-05 00:00:00 2023-12-05 00:00:00 Letter (Out) Charli [facility] MADELAINE?[facility] MED[facility] OFF[facility] BU[facility] 1..840.114 350.1.13.10 [id number] [id number] [facility] 2023-12-03 00:00:00 2023-12-03 00:00:00 Patient Secure Msg Charli [facility] MADELAINE?[facility] OFF[facility] 1..840.114 350.1.13.10 4.2.7.2.686 [id number] [facility] 2023-12-02 10:30:00 2023-12-02 23:59:00 Outpatient R NAKITAMiguel AngelSURY [facility] [id number] [facility] 2023-12-02 10:30:00 2023-12-02 23:59:00 [facility] 1..840.114 350.1.13.10 4.2.7.2.686 [id number] [facility] 2023-12-02 10:00:00 2023-12-02 13:18:30 Nurse Head Visit Lab, Ang - Db Charli [facility] MADELAINE?[facility] MED[facility] OFFICE BUILD[facility] 1..840.114 350.1.13.10 4.2.7.2.686 [id number] [facility] 2023-12-01 14:00:00 2023-12-01 15:26:04 Outpatient R SURY [facility] [id number] [facility] 2023-12-01 14:00:00 2023-12-01 15:26:04 Office Visit Charli [facility] MADELAINE?[facility] MEDICAL OFFICE BUILDING 1..840.114 350.1.13.10 4.2.7.2.686 [id number] [facility] 2023-11-30 10:45:00 2023-11-30 10:47:42 [id number] 2023-11-30 10:45:00 2023-11-30 10:47:42 Nurse Head Visit Lab, Rafi - [facility] 1..840.114 350.1.13.10 4.2.7.2.686 [id number] [facility] [facility] 2023-11-30 00:00:00 2023-11-30 00:00:00 Telephone Charli [facility] MADELAINE?[facility] 1..840.114 350.1.13.10 4.2.7.2.686 [id number] 044 [id number] [facility] 2023-11-29 00:00:00 2023-11-29 00:00:00 Telephone Charli [facility] MADELAINE?[facility] 1.2.840.114 350.1.13.10 4.2.7.2.686 [id number] 044 [id number] [facility] 2023-11-11 14:45:00 2023-11-11 15:17:48 Telemedici ne Jessica Garcia [place] [facility] [place] 1.2840.114 350.1.13.58 9.2.7.2.686 [id number] 1 [id number] [facility] 2023-10-28 00:00:00 2023-10-28 00:00:00 Refill [facility]li [facility] 1.284.114 350.1.13.10 4.2.7.2.686 [id number] 044 [id number] [facility] 2023-10-20 15:00:00 2023-10-20 16:06:58 Outpatient R SURY AUGUSTIN [facility] [id number] [facility] 2023-10-20 15:00:00 2023-10-20 15:20:00 Office Visit [facility] 1.2840.114 350.1.13.10 4.2.7.2.686 [id number] 044 [id number] [facility] 2023-10-05 16:00:00 2023-10-05 18:19:11 Office Visit Jessica Garcia [place] [facility] [place] 1.2.840.114 350.1.13.58 9.2.7.2.686 [id number] 1 [id number] [facility] 2023-09-20 10:20:04 2023-09-20 23:59:00 Outpatient R RADIOLOGY [facility] [id number] [facility] 2023-09-20 10:20:04 2023-09-20 23:59:00 Hospital Encounter Radiology [facility] 1.284.114 350.1.13.10 4.2.7.2.686 [id number] [facility] 2023-08-04 00:00:00 2023-08-04 00:00:00 Outpatient R RADIOLOGY [facility] [id number] [facility] 2023-07-22 15:12:10 2023-07-22 23:59:00 Hospital Encounter [facility] 1.2.840.114 350.1.13.10 4.2.7.2.686 [id number] [facility] 2023-07-22 14:20:00 2023-07-22 15:07:30 Outpatient R SURY AUGUSTIN [facility] [id number] [facility] 2023-07-22 14:20:00 2023-07-22 15:00:00 Office Visit [facility] 1.2.840.114 350.1.13.10 4.2.7.2.686 [id number] 044 [id number] [facility] 2023-07-12 10:30:00 2023-07-12 12:06:48 Outpatient [facility] [id number] [facility] 2023-07-12 10:30:00 2023-07-12 12:06:37 Office Visit Jessica Garcia [facility] 1 1..840.114 350.1.13.58 9.2.7.2.686 [id number] [facility] 2023-06-30 10:24:22 2023-06-30 23:59:00 Outpatient R SURY AUGUSTIN [facility] [id number] [facility] 2023-06-30 10:24:22 2023-06-30 23:59:00 Hospital Encounter Sury Augustin [facility] 1..840.114 350.1.13.10 4.2.7.2.686 [id number] [facility] 2023-05-30 11:00:00 2023-05-30 12:05:25 Outpatient R KLEY, SURY KLEY, [facility] [id number] [facility] 2023-05-30 11:00:00 2023-05-30 12:05:25 Office Visit Sury Augustin [facility] KENDY BURKETT?[facility] 1.2.840.114 350.1.13.10 4.2.7.2.686 [id number] [id number] [facility] 2023-04-28 00:00:00 2023-04-28 00:00:00 [facility] 1.2.840.114 350.1.13.10 4.2.7.2.686 [id number] [id number] [facility] 2023-04-08 00:00:00 2023-04-08 00:00:00 [facility] 1.2840.114 350.1.13.10 4.2.7.2.686 [id number] 044 [id number] [facility] 2023-03-14 00:00:00 2023-03-14 00:00:00 [facility] 1.840.114 350.1.13.10 4.2.7.2.686 [id number] [id number] [facility] 2023-03-14 00:00:00 2023-03-14 00:00:00 [facility] 1.2.840.114 350.1.13.10 4.2.7.2.686 [id number] 044 [id number] [facility] 2023-02-24 00:00:00 2023-02-24 00:00:00 [facility] 1.2840.114 350.1.13.10 4.2.7.2.686 [id number] [id number] [facility] 2023-02-16 00:00:00 2023-02-16 00:00:00 (TEL) STLMLC STLMLC [id number] [facility] 2023-02-09 00:00:00 2023-02-09 00:00:00 Orders Only Doctor Unassigned, [place] [facility] 1.2840.114 350.1.13.10 4.2.7.2.686 [id number] [id number] [facility] 2023-02-01 00:00:00 2023-02-01 00:00:00 [facility] 1.2840.114 350.1.13.10 4.2.7.2.686 [id number] 044 [id number] [facility] 2023-01-04 00:00:00 2023-01-04 00:00:00 Orders Only Doctor Unassigned, [place] [facility] 1.2840.114 350.1.13.10 4.2.7.2.686 [id number] [id number] [facility] 2022-12-15 00:00:00 2022-12-15 00:00:00 Telephone [facility] 1.2840.114 350.1.13.10 4.2.7.2.686 [id number] 044 [id number] [facility] 2022-12-14 00:00:00 2022-12-14 00:00:00 Orders Only Doctor Unassigned, [place] [facility] 1.2840.114 350.1.13.10 4.2.7.2.686 [id number] [id number] [facility] 2022-11-30 14:20:00 2022-11-30 15:05:28 [facility] 1.2.840.114 350.1.13.10 4.2.7.2.686 [id number] 044 [id number] [facility] 2022-11-30 14:20:00 2022-11-30 15:05:28 Outpatient R CHARLI [facility] [id number] [facility] 2022-11-30 00:00:00 2022-11-30 00:00:00 Orders Only Doctor Unassigned, [place] [facility] 1.2.840.114 350.1.13.10 4.2.7.2.686 [id number] [facility] 2022-10-26 10:34:00 2022-10-26 10:34:00 Outpatient Gurdeep Haas [facility] [id number] [facility] 2022-06-01 00:00:00 2022-06-01 00:00:00 OFFICE VISIT ESTAB PT LEVEL 4 STLMLC STLMLC [id number] [facility] 2022-05-28 00:00:00 2022-05-28 00:00:00 (WEB) STLMLC STLMLC [id number] [facility] 2022-04-28 00:00:00 2022-04-28 00:00:00 (TEL) STLMLC STLMLC [id number] [facility] 2022-04-28 00:00:00 2022-04-28 00:00:00 (TEL) STLMLC STLMLC [id number] [facility] 2022-02-11 00:00:00 2022-02-11 00:00:00 OFFICE VISIT NEW PT LEVEL 4 STLMLC STLMLC [id number] [facility] Results Test Description Test Time Test Comments Results Result Co mments Source [facility] (12662)2023-12-02 21:33:04* Test Item Value Reference Range Interpretation Comme nts NA (test code = 1208103278) 139 mmol/L 135-145 K (test code = 0229026823) 5.2 mmol/L 3.5-5.0 H CL (test code = 1068846515) 108 mmol/L 98-108 CO2 TOTAL (test code = 9963242076) 23 mmol/L 23-31 AGAP (test code = 0543293812) 8 2-16 BUN (test code = 2608127157) 25 mg/dL 7-23 H GLUCOSE (test code = 4233141382) 90 mg/dL 70-110 CREATININE (test code = 0093192509) 0.97 mg/dL 0.50-1.04 TOTAL BILI (test code = 9290707888) 1.0 mg/dL 0.1-1.1 CALCIUM (test code = 3655288883) 9.8 mg/dL 8.6-10.6 T PROTEIN (test code = 9170348025) 7.8 g/dL 6.3-8.2 ALBUMIN (test code = 9408156461) 4.3 g/dL 3.5-5.0 ALK PHOS (test code = 2669740130) 40 U/L 34-122 ALTv (test code = 1742-6) 29 U/L 5-35 AST(SGOT) (test code = 0517936090) 40 U/L 13-40 eGFR (test code = 74814-3) 64.2 mL/min/1.73m2 CKD-EPI eGFR (2020). Assuming creatinine has been stable day-to-day for at least three months, the eGFR indicates Category G2 (60 - 89 mL/min/1.73 m2) Lab Interpretation (test code = 38196-3) Abnormal [facility] Children[facility]cosylated Hemoglobin (A1C)2023-12-02 20:07:58* Test Item Value Reference Range Interpretation Comme nts HGB A1C (test code = 4548-4) 5.9 % 4.0-5.7 H YESSENIA (test code = YESSENIA) Reference RangesNormal: <5.7%Prediabetes: 5.7 - 6.4%Diabetes: > 6.5% Lab Interpretation (test code = 52324-1) Abnormal [facility] Hemoglobin (A1C)2023-12-02 20:07:58* Test Item Value Reference Range Interpretation Comme [facility] HGB A1C (test code = 4548-4) 5.9 % 4.0-5.7 H YESSENIA (test code = YESSENIA) Reference RangesNormal: <5.7%Prediabetes: 5.7 - 6.4%Diabetes: > 6.5% Lab Interpretation (test code = 42077-0) Abnormal [facility] Children[facility] Partial Thrmplas Bca3212-63-24 18:20:35* Test Item Value Reference Range Interpretation Comme [facility] APTT Patient (test code = 3173-2) 29 See_Comment [Automated message] The system which generated this result transmitted reference range: 23 - 38 Seconds. The reference range was not used to interpret this result as normal/abnormal. YESSENIA (test code = YESSENIA) The [facility] patient population mean normal value for aPTT is 30 seconds. Lab Interpretation (test code = 97901-1) Normal [facility] ChildrenProthrombin Time / ISF0324-64-14 18:20:35* Test Item Value Reference Range Interpretation Comme [facility] PROTIME PATIENT (test code = 5964-2) 12.3 See_Comment [Automated messa ge] The system which generated this result transmitted reference range: 12.0 - 14.7 Seconds. The reference range was not used to interpret this result as normal/abnormal. INR (test code = 6301-6) 0.9 Normal INR <1.1; Warfarin Therapeutic range 2.0 to 3.0 or 2.5 to 3.5, depending upon the indications. Lab Interpretation (test code = 23556-2) Normal [facility]rm[facility] Ucu8279-26-06 18:20:35* Test Item Value Reference Range Interpretation Comme [facility] APTT Patient (test code = 3173-2) 29 See_Comment [Automated message] The system which generated this result transmitted reference range: 23 - 38 Seconds. The reference range was not used to interpret this result as normal/abnormal. YSESENIA (test code = YESSENIA) The [facility] patient population mean normal value for aPTT is 30 seconds. Lab Interpretation (test code = 09249-3) Normal [facility] ChildrenPro[facility]bin Time / [id number] 18:20:35* Test Item Value Reference Range Interpretation Comme [facility] PROTIME PATIENT (test code = 5964-2) 12.3 See_Comment [Automated messa ge] The system which generated this result transmitted reference range: 12.0 - 14.7 Seconds. The reference range was not used to interpret this result as normal/abnormal. INR (test code = 6301-6) 0.9 Normal INR <1.1; Warfarin Therapeutic range 2.0 to 3.0 or 2.5 to 3.5, depending upon the indications. Lab Interpretation (test code = 66134-8) Normal [facility]rm[facility] Hqt4131-14-80 18:20:35* Test Item Value Reference Range Interpretation Comme [facility] APTT Patient (test code = 3173-2) 29 See_Comment [Automated message] The system which generated this result transmitted reference range: 23 - 38 Seconds. The reference range was not used to interpret this result as normal/abnormal. YESSENIA (test code = YESSENIA) The [facility] patient population mean normal value for aPTT is 30 seconds. Lab Interpretation (test code = 85428-6) Normal [facility] ChildrenPro[facility]bin Time / [id number] 18:20:35* Test Item Value Reference Range Interpretation Comme [facility] PROTIME PATIENT (test code = 5964-2) 12.3 See_Comment [Automated messa ge] The system which generated this result transmitted reference range: 12.0 - 14.7 Seconds. The reference range was not used to interpret this result as normal/abnormal. INR (test code = 6301-6) 0.9 Normal INR <1.1; Warfarin Therapeutic range 2.0 to 3.0 or 2.5 to 3.5, depending upon the indications. Lab Interpretation (test code = 70129-3) Normal [facility] ChildrenCbc with Qadr4195-01-55 18:10:03* Test Item Value Reference Range Interpretation Comme [facility] WBC (test code = 6690-2) 6.43 See_Comment [Automated [employer] ge] The system which generated this result transmitted reference range: 4.30 - 11.10 10*3/?L. The reference range was not used to interpret this result as normal/abnormal. RBC (test code = 789-8) 4.57 See_Comment [Automated messa ge] The system which generated this result transmitted reference range: 3.93 - 5.25 10*6/?L. The reference range was not used to interpret this result as normal/abnormal. HGB (test code = 718-7) 14.4 g/dL 11.6-15.0 HCT (test code = 4544-3) 43.5 % 35.7-45.2 MCV (test code = 787-2) 95.2 fL 80.6-95.5 MCH (test code = 785-6) 31.5 pg 25.9-32.8 MCHC (test code = 786-4) 33.1 g/dL 31.6-35.1 RDW-SD (test code = 37822-2) 44.1 fL 39.0-49.9 RDW-CV (test code = 788-0) 12.7 % 12.0-15.5 PLT (test code = 777-3) 227 See_Comment [Automated messa ge] The system which generated this result transmitted reference range: 166 - 358 10*3/?L. The reference range was not used to interpret this result as normal/abnormal. MPV (test code = 59725-3) 12.0 fL 9.5-12.9 NRBC/100 WBC (test code = 8263874028) 0.0 See_Comment [Automated me ssage] The system which generated this result transmitted reference range: 0.0 - 10.0 /100 WBCs. The reference range was not used to interpret this result as normal/abnormal. NRBC x10^3 (test code = 3955709355) See_Comment [Automated messa ge] The system which generated this result transmitted reference range: 10*3/?L. The reference range was not used to interpret this result as normal/abnormal. GRAN MAT (NEUT) % (test code = 770-8) 51.0 % IMM GRAN % (test code = 7041714287) 0.50 % LYMPH % (test code = 736-9) 35.1 % MONO % (test code = 5905-5) 9.8 % EOS % (test code = 713-8) 1.9 % BASO % (test code = 706-2) 1.7 % GRAN MAT x10^3(ANC) (test code = 7998602072) 3.28 10*3/uL 1.88-7.09 IMM GRAN x10^3 (test code = 4320596439) 0.03 10*3/uL 0.00-0.06 LYMPH x10^3 (test code = 731-0) 2.26 10*3/uL 1.32-3.29 MONO x10^3 (test code = 742-7) 0.63 10*3/uL 0.33-0.92 EOS x10^3 (test code = 711-2) 0.12 10*3/uL 0.03-0.39 BASO x10^3 (test code = 704-7) 0.11 10*3/uL 0.01-0.07 H Lab Interpretation (test code = 95619-2) Abnormal [facility]2022-[facility]-22 17:17:00* Test Item Value Reference Range Interpretation Comme nts SURGICAL (test code = SR) R UN DATE: 10/28/22 [facility] PAGE 1 RUN TIME: 1718 Specimen Inquiry RUN USER: INTERFACE P ATIENT: RODNEY GALLEGO LOC: KarliNOHELIA U #: [id number] AGE/SX: 67/F ROOM: RE10/26/22REG DR: Gurdeep Osborn : 57 BED: DIS: STATUS: DEP SDC TLOC: SPEC #: [id number] RECD: 10/26/22 STATUS: YANIRA SON #: [id number] JILLIAN: 10/26/[address] [facility] [address]: Gurdeep Osborn MD ENTERED: 10/26/22 SP TYPE: SURGICAL OTHR DR: DOES_NOT KNOW ORDERED: ANATOMIC SPEC, SPEC TRACK, 85784 COPIES TO: DOES_NOT KNOW Gurdeep Osborn MD 1 [facility] # [id number] [place], [place] [id number] PROCEDURES: [id number] (10/28/22) TISSUES: A. FIBROID - SUBMUCOSAL FIBROID AND ENDOMETRIAL CURETTING FINAL DIAGNOSIS A. ENDOMETRIUM, "SUBMUCOSAL FIBROID", CURETTINGS: - Benign endometrial polyp (entirely submitted). - Negative for malignancy. GROSS DESCRIPTION Specimen is received in formalin, labeled with patient's name, MRN, date of andsubmucosal fibroids and EMC. It consists of a 10 g and 5.5 x 4.3 x 1.3 cm aggregate ofmultiple irregular fragments of soft driver-pink tissue with tiny blood clots. Specimen isentirely submitted in 7 cassettes A 1-A7.aj10/26/22 Technical component performed at [facility] [address] [place] [address] Immunohistochemical stains and Special Stains are performed [facility], [address] [place] [address], [address], [place] [address] Unless gross only, the diagnosis is based upon microscopic examination.Immunohistochemistr y: This test was developed and its performance characteristicsdetermined by this laboratory. It has not been approved nor does it need approval by Jen FDA. Appropriate positive and negative controls are reviewed and judged to beacceptable. This laboratory is certified under the Clinical Laboratory ImprovementAmendments (CLIA-88) as qualified to perform high complexity clinical laboratory testing. CONTINUED ON NEXT PAGE R UN DATE: 10/28/22 [facility] PAGE 2 RUN TIME: 1717 Specimen Inquiry RUN USER: INTERFACE S PEC #: [id number] PATIENT: RODNEY GALLEGO #[id number] (Continued) CLINICAL INFORMATION 10/26/22, OUT OF BODY 1345P, IN FORMALIN 1453P, POST MENOPAUSAL BLEEDING, THICK ENDOMETRIALSTRIPE. Signed SIGNATURE ON FILE Ramiro Tariq 10/28/22 6500 END OF REPORT BASIC METABOLIC [id number] 13:25:00* Test Item Value Reference Range Interpretation Comme nts SODIUM (test code = NA) 141 mEq/L 135-145 N POTASSIUM (test code = K) 4.8 mEq/L 3.5-5.0 N CHLORIDE (test code = CL) 104 mEq/L 100-115 N CARBON DIOXIDE (test code = CO2) 30 mEq/L 22-31 N ANION GAP (test code = GAP) 12.30 10-20 N GLUCOSE (test code = GLU) 94 mg/dL 65-110 N BLOOD UREA NITROGEN (test code = BUN) 22 mg/dL 7-18 H GLOMERULAR FILTRATION RATE (test code = GFR) 55 ml/min >60 L The Glomerular Filtration Rate is a calculated parameterbased on serum Creatinine, patient age and sex. GFR valuesless than 60 mL/min/1.73 square meters are indicative ofChronic Kidney Disease. Values less than 15 mL/min/1.73square meters indicate Kidney failure. The calculation forGFR is based on the CKD-EPI (2020) calculation. This formulais race indifferent and is the recommended formula for GFRby the National Kidney Foundation for Adults.The GFR will not calculate if the sex is unknown or if thepatient's age is <18 years. CREATININE (test code = CREAT) 1.1 mg/dL 0.5-1.0 H CALCIUM (test code = CA) 9.9 mg/dL 8.4-10.2 N CBC W/AUTO [id number] 13:00:00* Test Item Value Reference Range Interpretation Comme nts WHITE BLOOD CELL (test code = WBC) 7.4 K/mm3 6.5-12.3 N RED BLOOD CELL (test code = RBC) 4.64 M/mm3 3.51-4.69 N HEMOGLOBIN (test code = HGB) 14.2 g/dL 10.1-13.8 H HEMATOCRIT (test code = HCT) 45.2 % 32.5-41.8 H MEAN CELL VOLUME (test code = MCV) 97.4 fL 84.6-96.6 H MEAN CELL HGB (test code = MCH) 30.6 pg 27.3-33.9 N MEAN CELL HGB CONCETRATION ( test code = MCHC) 31.4 gm/dL 32.0-34.2 L RED CELL DISTRIBUTION WIDTH (test code = RDW) 12.6 % 12.2-16.3 N PLATELET COUNT (test code = PLT) 202 K/mm3 134-363 N IMMATURE PLATELET FRACTION ( test code = IPF) 14.1 % 0.0-10.8 H MEAN PLATELET VOLUME (test c ode = MPV) 12.4 fL 9.2-12.7 N NEUTROPHIL % (test code = NT%) 55.3 % 57.9-77.3 L LYMPHOCYTE % (test code = LY%) 31.7 % 14.5-29.7 H MONOCYTE % (test code = MO%) 9.0 % 3.6-10.2 N EOSINOPHIL % (test code = EO%) 2.4 % 0.0-3.0 N BASOPHIL % (test code = BA%) 1.2 % 0.1-0.9 H NEUTROPHIL # (test code = NT#) 4.1 K/mm3 LYMPHOCYTE # (test code = LY#) 2.4 K/mm3 MONOCYTE # (test code = MO#) 0.7 K/mm3 EOSINOPHIL # (test code = EO#) 0.18 K/mm3 BASOPHIL # (test code = BA#) 0.1 K/mm3 RBC MORPHOLOGY REQUIRED (reed t code = RBCM) NORMAL NORMAL PLATELET MORPHOLOGY REQUIRED (test code = PLTMR) NORMAL NORMAL Notes Date/Time Note Provider Source 2023-12-06 15:22:56 29p1Vf9b0GLkzE2TGc6YiVUCTVl7E+uu bAIlVAD/kDQ2HQ8kxxTK+JJKSGpGCmBe 0582-28-32V61:22:56 All surgery forms faxed. 69972-4Qlwuybdbs encounter WkkpQP0020-00-55U78:23:10Telepho ne encounter NoteTXT1.2.840.849226.1.13.104.2 .7.2.336520|[id number] e for patient kmwd40040-0XcfqHTTKGIAAABERysyyx kenny C-CDA narrative textUT[address] StreetGalvestonTXTX[address] 0195INNABLPSNRSMOCJPIDMOSG4102-5 5:23:101.2.840.979518.1.72 .3.15|1.2.840.998956.1.13.104.2. 7.2.727879_[id number] [facility] 2023-12-06 14:52:01 1UDIzlYsUU55eWC8JV1rdMAbcDlcQxhw IpzWtoJmSUz5P31s3AmrGvLC57SUfe9U 7892-37-86K16:52:01 Rodney Gallego is a 68 year old femaleJoanne with [facility] called requesting for surgery clearance to be faxed to them. They are having issues viewing it. Please fax to [phone] back number: [phone] signed by Griselda Yu at 12/06/2023 2:54 PM DZB01163-8Ldnpzfyxz encounter FforXG3502-15-70J03:54:07Telepho ne encounter NoteTXT1.2.840.001858.1.13.104.2 .7.2.927963|[id number] e for patient ewcp91081-9XdyzJFDNOTRCIKTHgkxmy kenny C-CDA narrative [id number] Martinez[address]vdGalvestonGalvestonTXTX[address] 8431ZLQEJVFCBUYYQVIIXYPKRB2531-9 4:54:071.2.840.723904.1.72 .3.15|1.2.840.145803.1.13.104.2. 7.2.727879_[id number] Griselda Yu [facility] 2023-12-06 13:00:00 2mn62lhmUo4EQBbj8ZsItGdAw4FAbH8S bzSmtWGg2lGrVJdsVc88DHYyKTmL7y9Q 6741-65-04P81:00:00 Images from the original note were not included.Patient has been identified by and name and was provided with cup, antiseptic towelette, and clean catch instructions. 3 urine specimen(s) sent.Unpreserved 2Urine Culture 1Aptima tubeOther urine 32007-9Uqquk CpdsBH0870-59-63Z90:20:19Nurse NoteTXT1.2.840.301391.1.13.104.2 .7.2.228098|[id number] e for patient wthh28148-0Qcobp NoteLNNARRATIVEFormatted C-CDA narrative [id number] A Gonzalez[address] BaxpKcvklmcbjHfcmzyxfeDMGQ548177 1581IQAYJLYNFSQJFEQTGWKKZM1321-5 12-06T12:20:191.2.840.299242.1.72 .3.15|1.2.840.188543.1.13.104.2. 7.2.727879_[id number] Shea Ansari [facility] 2023-12-02 10:00:00 dVQej+ZKW1EPQytKQDDjwHpID1DSrEaD A+BCFkYr6/b/MxfUdtqpp1+fEoXHo3s6 6359-13-34Y85:00:00 Images from the original note were not included.Venipuncture collection performed by clean technique on the right forearm. Total of 1 attempts were made. Slight pressure and a bandage/dressing were applied to the site(s). The patient experienced no complications. The following specimens were processed according to instructions and sent to [facility] laboratories per lab order on today:LT BLUE 1SST 1REDLAV 2PPTDK GREEN (LiHep)DK GREEN (SodH)GRAYDK BLUE (K2)DK BLUE (S)ACDBlood CultureNIPT/NTD 98589-9Soysj KoggJT2442-76-86B63:09:17Nurse NoteTXT1.2.840.181530.1.13.104.2 .7.2.468596|[id number] e for patient kqin79622-6Hgvvq NoteLNNARRATIVEFormatted C-CDA narrative [id number] A Gonzalez[address] NndhSdykwajltJdvpawdqvHPCY421423 5252OMTEXYHKVWOREONYYFQEAM9820-0 12-02T12:09:171.2.840.858576.1.72 .3.15|1.2.840.060034.1.13.104.2. 7.2.727879_[id number] Shea Ansari [facility] 2023-12-01 14:00:00 2cl9iHGPcxRtKgIDmT0XT5RZU9fzZYBz 2cV+6DqUQWgEQp8MDCkpS2UlXHtdYWo3 7938-62-31B05:00:00Addended by: SURY AUGUSTIN on: 12/01/2023 05:06 PMModules accepted: Level of Service 25824-8Lfhsyfsl UyccsmiwMT9711-25-52E91:06:08Add endum DocumentTXT1.2.840.815214.1.13.1 04.2.7.2.520479|[id number] lable for patient mvkr77546-1GppdTUWZQDTNMQWXiqwdz kenny C-CDA narrative textUT[address]vd[address] 6601OKRCTGNCLLOHCMUSRAIGOC6849-1 12-01T17:06:081.2.840.671691.1.72 .3.15|1.2.840.948715.1.13.104.2. 7.2.727879_[id number] [facility] 2023-11-30 10:45:00 7dP8LJze3+nXvgI33gBOGS5CkEyobrnm UkV+liaEvTLz1D8vJ953F6JnXVU7MTjm 1083-44-41K84:45:00 Pt came in with an email orders sent to Sury Augustin to be cleared for Pre-Op surgery. After speaking with Daria Eller MA she said she needs to see Sury Vizcarra for doing blood work. Pt has an appointment tomorrow with provider for Pre-Op.Paola Perez 11/30/2023 10:58 AM 53013-2Cwppj AtxkMR7522-43-42V78:58:27Nurse NoteTXT1.2.840.919621.1.13.104.2 .7.2.572448|[id number] e for patient ttcv85891-6Ruwnr NoteLNNARRATIVEFormatted C-CDA narrative text[address] 0431QAFAJOSREUNQAVQZSMZPKQ2061-5 11-30T10:58:271.2.840.203867.1.72 .3.15|1.2.840.481244.1.13.104.2. 7.2.727879_[id number] [facility] 2023-11-30 10:15:39 F+2Z6KK4A1RncsIbX4nGnkUlZFWlE7jd HvvDKt8yYmJVv3fzJeulm1o1dnhXBz1j 5700-73-80S13:15:39 Patient here in clinic. Has appointment for pre-op tomorrow. Orders will be placed then. Patient aware.Lisa Jones LVN 11/30/2023 10:16 AM 71396-7Vtlfvdnin encounter UvujXZ6220-57-97O21:16:28Telepho ne encounter NoteTXT1.2.840.093949.1.13.104.2 .7.2.672176|[id number] e for patient xkbo82917-4IsnaZVBCYRVJDNCNgtbup kenny C-CDA narrative nszb627416839Zxwylpi M Fisher [address] LxbcXlhqjpvtnImauljhxaZMMP607069 6802PQCARRBDOJETPVAPXJUNFQ1757-0 11-30T10:16:281.2.840.174146.1.72 .3.15|1.2.840.339323.1.13.104.2. 7.2.727879_[id number] [facility] 2023-[facility]-30 08:26:28 prg0JrUYkUviZF6Iz/kxFoo20DSpWHba GkrImH043v/CHg3GB3wM8OU0Ma9PJtZh 5616-26-20R17:26:28 Rodney Gallego is a 68 year old female and is wanting to have an EKG and x-ray done. Would like to know if this can be done with her appointment tomorrow 12/01/23. Please contact at [phone].Pt trying to get confirmation today please. 73149-5Dsnvlrxom encounter YtxyWN1307-32-02Y58:29:40Telepho ne encounter NoteTXT1.2.840.701903.1.13.104.2 .7.2.305174|0546259834ULXveawonf e for patient kzdi00597-5WnpqBTDKNTGFBIPGuasck kenny C-CDA narrative jxui54109222Fpnjkyk S [address] 6117PDKXIXBJOGEUOWIRTCVTGO0224-7 11-30T08:29:401.2.840.672750.1.72 .3.15|1.2.840.352800.1.13.104.2. 7.2.727879_[id number] Archana Willis [facility] 2023-11-30 08:04:21 adh/i2ST/5OEm11XZGGx5YIAW8ptzOcf 3sLsllF0EyHuPATMWJtk3/+arLdrxSQS 1247-94-41B86:04:21 Next Appt: With Family Medicine (Sury Augustin MD)12/01/2023 at 2:00 PM 91320-0Wopffvtvn encounter PfbrGO9377-69-86U96:04:26Telepho ne encounter NoteTXT1.2.840.389365.1.13.104.2 .7.2.702345|2336841826GIBmgyazgf e for patient wfnc28169-8FbmeOTEYWFAOJQLUxqngg kenny C-CDA narrative akqo696899589Jzsoqhx M Fisher [address] 3133HNUCMCBAYXMMQHDSJEQAYU6517-4 11-30T08:04:261.2.840.832669.1.72 .3.15|1.2.840.357883.1.13.104.2. 7.2.727879_[id number] Lisa Jones LVN [facility] 2023-11-29 18:51:06 qqjErsgAQXlaK/gIhGXmI00pDOo4bz1R UtgzL+pf0xsTk9RnyHxfrXmi4IwfySKQ 5926-49-83K06:51:06 She will need on office visit. I am about to go on leave, so she can schedule with a different provider if I a do not have availability.BestDr. Johnectronically signed by Sury Augustin MD at 11/29/2023 6:52 PM AQK93650-7Xrgaiyoyq encounter YxxbBG8171-87-61B14:52:01Telepho ne encounter NoteTXT1.2.840.066851.1.13.104.2 .7.2.563044|8822984455NIQxnjcrre e for patient ntkj50718-2ZsopCOXDPDCCVTTRqwxlq kenny C-CDA narrative textUT[address] RocqXizqxnsksHrmlnokfpRQJM646864 8698UFPYHDLLEDTIZHCXTMMFFU4509-0 8:52:011.2.840.948158.1.72 .3.15|1.2.840.065840.1.13.104.2. 7.2.727879_[id number] [facility] 2023-11-29 13:59:27 DAzfXYsPALdYYerSXVRSmxVFuHyxJ66K ZmhJS7LBwdxIi1dKSw86r8qEpVf598eB 1843-95-80M39:59:27 Please review and advisDomingo Jones LVN 11/29/2023 1:59 PM 02460-8Xcvjpautu encounter RoqjCZ5662-00-73H09:00:04Telepho ne encounter NoteTXT1.2.840.656820.1.13.104.2 .7.2.449739|3601753932IKMavteubb e for patient lpdc86986-0YhwqTJFJCMBENJADmowgu kenny C-CDA narrative text[address]TXTX[address] 1648DCZUFIUQJNKUAXVRHKVWMX6059-0 4:00:041.2.840.331466.1.72 .3.15|1.2.840.943141.1.13.104.2. 7.2.727879_[id number] [facility] 2023-11-29 13:55:20 LidNfNu4YgkCfDyrXOj1T3se090eq9/n mY2UqB2YqHnD7hntXZjYfbtHAjp0cO2a 0877-78-37C63:55:20 Rodney Gallego is a 68 year old femalePt calling to re order for EKG and chest xray for her rotator cuff repair surgery with Dr. Ferrara on 12/19/23Please advise, pt would like to have done on 11.30.23 68055-4Qhnwcpefa encounter AaxrCK4358-48-95K71:58:19Telepho ne encounter NoteTXT1.2.840.365240.1.13.104.2 .7.2.797462|0705763844QCOsnfmwjz e for patient gckt65133-7ZosaLCUSIENFOXJLymgve kenny C-CDA narrative conv223011668Gloqpw N MillerUT96 [address] StreetTXTX[address] 0966IGQPOKATLNXOYTXDTMILFL2322-0 3:58:191.2.840.662459.1.72 .3.15|1.2.840.948170.1.13.104.2. 7.2.727879_[id number] Angeli Cavazos [facility] 2023-11-19 21:32:07 VGU0LYfkjDjMQIuKNzCYYkoLnGlr+Kylee Srct5ty4xlUs2nydi/vUOevrvrFqJvE5 8296-65-67V63:32:07Associated Problem(s): Nontraumatic complete tear of left rotator cuff Surgery risks, benefits, and alternatives were discussed with the patient regarding operative intervention. Risks include but are not limited to pain, bleeding, scarring, infection, damage to nerves, arteries, veins, failure of procedure, possible loosening, migration, or hardware failure, possible choice of implants ([employer], [place] [employer]), possible painful or prominent hardware, joint stiffness, need for further procedures, nonunion, malunion, dislocation, loss of limb, heart attack, stroke and . Patient voiced understanding and wished to proceed with operative interventions.Left shoulder arthroscopy, SAD, biceps and labral debridement, and rotator cuff repair 91392-0Zzowopzvds + Plan ldjuRZ6756-62-73M10:32:07Evaluat ion + Plan noteTXT1.2.840.316864.1.13.589.2 .7.2.391453|722803180ZMSsihsizqy for patient fsfm75500-5EhufGDYLAEPHOFUKbmqut kenny C-CDA narrative textUTHEPIThe [facility] #0615CDGTVQZXMONSCJWZBZ519772645 5FWEMLUQXTGMMMICQWF1673-26-10D95 :32:071.2.840.187149.1.72.3.15|1 .2.840.595301.1.13.589.2.7.2.727 [id number] [facility] 2023-11-02 13:36:29 YLj1LxtiwIlloRcPZiWvaVAjVo1n2oF/ tRHvfd4HQp6Xh/ECv4RDzWdR6CFOoRWv 3529-90-80D25:36:29 Patient takes 1 daily script sent to pharmacy 00244-0Nbhflbirf encounter LcoaXB1240-88-29F98:36:53Telepho ne encounter NoteTXT1.2.840.331363.1.13.104.2 .7.2.321551|2762419042UJYjtkbwbu e for patient agxe25543-1ZhorTKWJKHSSECJZfixpn kenny C-CDA narrative zyvs291961216Fcfmuyw R Gwyn [address] 5907NFRAIQIEBKAFVLFJVQYMHT5304-3 2-27T13:36:531.2.840.234456.1.72 .3.15|1.2.840.064524.1.13.104.2. 7.2.727879_[id number] Rosa Maria Pascal MA [facility] 2023-10-28 17:15:24 G8g/3Rmn9v0znrIqd0nyM18qvMKkLyYV IBw/L1Ec14+bb0T7WnvVfg87eINC6kR 2926-64-51H38:15:24 Can you clarify the dosing and frequency?Best,Dr. Johnectronically signed by Sury Augustin MD at 10/28/2023 5:16 PM GUN48670-1Rfxbhvenk encounter DfnoUC0402-49-26N87:16:06Telepho ne encounter NoteTXT1.2.840.131151.1.13.104.2 .7.2.453315|9617146391LNNbuolfzx e for patient ayxw51128-8RlvwPKJJVTPGQBGWacmjm kenny C-CDA narrative [address] 8511VARPAZCXJBJFWBLVYBYIDS0340-7 2-22T17:16:061.2.840.686113.1.72 .3.15|1.2.840.396094.1.13.104.2. 7.2.727879_[id number] [facility] 2023-10-28 14:39:26 y3qVRrxNNB66c6rPK7VgIFSNDooPCfPQ NlQbOqdqgtGZ5QKHd2UnkYIZzKsyaZPm 2628-31-44I53:39:26 Recent VisitsDate Type Provider Dept112/21/22 [facility] Visit Sury Augustin MD [facility] Med05/30/23 Office Visit Sury Augustin MD [facility] Med11/30/22 [facility]Show[facility] recent visits within past 540 days with a meds authorizing provider and meeting all other requirementsFuture AppointmentsDate Type Provider Dept12/01/23 Appointment Sury Augustin MD [facility] MedShowing future appointments within next 150 days with a meds authorizing provider and meeting all other requirementsI don't see that you have prescribed this for patient 93345-0Saoqewkmv encounter PichLI9379-99-28P60:40:06Telepho ne encounter NoteTXT1.2.840.223400.1.13.104.2 .7.2.690562|9233610131JUDkpsqdbk e for patient isip58929-4TmjlIHEMNZDBGIYHldvei kenny GONZALEZ narrative textUT[address] GusqOpsuiazjxLtzlmyheiXLNO136187 0673REYVENAJLBGYFUSKDYRWUA0888-4 2-22T14:40:061.2.840.743007.1.72 .3.15|1.2.840.744905.1.13.104.2. 7.2.727879_[id number] [facility] 2023-10-28 14:13:04 D6OlZgwzHJeiZ9Jhb1nLheFtPpTEkSSL Wvlw9kQ5fn8w+amZcahJPyAt/3CMcZ9i 8110-51-96D24:13:04 Patient requesting a refill of:atenoloLMedication: atenoloLDose: 25 mgRoute: rx refillQuantity:Ph[facility] [place] [place] [facility] [address] [facility] [address] [address]Rpgui: [phone] Scgd appt.: 10/20Next appt.: 12/01/23 04694-0Dmtwyuvxa encounter BeqeQP8758-00-63M86:17:30Telepho ne encounter NoteTXT1.2.840.516859.1.13.104.2 .7.2.394451|9027922505YNCgbmaeku e for patient atrf88594-1CnjdMUHLTMDFWINHleodg kenny Thomas-AFSANEHA narrative givu596895283Setxr C Briggs[address] DejhBkgcozknaMnaulgyveEBUU994395 3676QUEXNRBQCJOJLETDFJSRQH2523-0 2-22T14:17:301.2.840.063586.1.72 .3.15|1.2.840.009415.1.13.104.2. 7.2.727879_[id number] Moe Huerta [facility] 2023-07-17 17:26:56 5jPy9d/ofylLa+4dnsG+VXH1Vru1rjCn fKVqvyas7U208lc3sAJEjpJkvyJy0g+c 4872-83-17J91:26:56Associated Problem(s): Impingement syndrome of shoulder, left Patient has attempted conservative measures including therapy, injection, and/or NSAIDs but is still having pain. We will obtain an MRI to further evaluate. 75377-6Luxwgdbgab + Plan xmrhNB3335-94-69K24:26:56Evaluat ion + Plan noteTXT1.2.840.051917.1.13.589.2 .7.2.323084|276937740BZJviqrtjak for patient mcsk46168-2UmxzVDDXTEATCsxCedar Park [facility] #[id number] 2XODUQQDWQJYBJPDVRT4725-78-49L37 :26:561.2.840.745689.1.72.3.15|1 .2.840.784891.1.13.589.2.7.2.727 [id number] [facility] 2022-10-26 14:31:00 Q97645299262ieBqcRGUhs4OLj4JPe8u cwxz+K6snHZODWPtQCJatZkZKWEau05J [facility]/GiydQ9724-17-51K86:31:00 [facility]Full Op NoteREPORT#:[id number] REPORT STATUS: SignedDATE:10/26/22 TIME: 143 PATIENT: RODNEY GALLEGO UNIT #: [id number]#: [id number] ROOM/BED:: 56 AGE: 67 SEX: F ATTEND[facility]born [facility] AUTHOR: Gurdeep Osborn MD * ALL edits or amendments must be made on the electronic/computer document * Operative ReportORM Surgeries: Surgery Date and Time: 10/26/2022 1230 Primary Procedure: HYSTEROSCOPY DIAGNOSTIC,INSERTION OF Secondary Procedure: DIAGNOSTIC DILATION AND CURETTAGE Start date: 12/20/22Start time: 1305Pre-procedure diagnosis:postmenopausal bleeding, thickened endometrium with suspected polypPost-procedure diagnosis:postmenopausal bleeding, thickened endometrium with suspected fibroidProcedures performed:hysteroscopy, dilation and curettage, myomectomyTechnique/Procedure:Ri sks/benefits were discussed, and pt agreed to proceed. She was taken to the operating room, and anesthesia was obtained without difficulty. She was positioned in yellowfin stirrups, and prepped and draped in the standard sterilefashion. Her bladder was drained with a red rubber catheter, which was then removed. An operative speculum was placed. A tenaculum was placed in the anterior lip of the cervix. Her uterus sounded to 10cm. Owens dilators were used for dilation of the cervix. Due to the anticipation of an endometrial polyp, the truclear soft tissue shaver plus was selected. THe hysteroscope was advanced. THe distal tip of the endometrial mass was visible entering into the internal os of the cervix. It filled the endometrium, with a smooth fleshy surface. It appeared to arise from a stalk at the left superior sidewall. The Truclear was used to begin the resection. The tissue appeared firmer, more calcified than a typical polyp. The hysteroscope was removed. Polyp forceps were attempted, but were not able to grasp the firm tissue. Tissue forceps wereused, and were able to grasp and remove the mass in several segments. These were collected to send in one pathology specimen with the tissue removed via thetruclear. A smooth bovine curette was used for curettage of the entire cavity, continuing until the site of the stalk had a normal uterine cry. At the conclusion, the hysteroscope was replaced, and the cavity was examined. The cavity at the conclusion of the procedure was normal, smooth, with no lesions ordefects. The hysteroscope was removed. The mirena IUD was placed using the standard applicator. The strings were trimmed 2cm from the os. The tenaculum was removed and the site was hemostatic. The speculum was removed. Counts werecorrect x 2. The patient tolerated the procedure well. She will be discharged to home from the PACU. Primary Surgeon: Anabell Postistant(s): noneAnesthesia: general anesthesiaOperative findings:10cm endometrial sound. large endometrial mass, dense texture consistent with fibroid, total estimated size 3l2x6gb. Complications: noneEstimated blood loss in ml's: 15mlSpecimens removed/altered: endometrial mass- suspected fibroid with endometrial curettings.Cultures sent: NoDrain(s)/tube(s): noneImplant(s): noneFluids:1LUrine output:100mL Approach: hysteroscopicDisposition: plan to D/C home, PACUCounts: Sponge count: correct Instrument count: correct Needle count: correctWound class: clean-contaminated at 1816 RPT #:[id number] OF REPORT OPOperative jbucwh3667-90-06V92:31:00F.PDOC2 6245234-5305SHHimwitkol for patient zjkuFQSEJUCUINSSMJ8304-75-40R03: 16:37 [facility] 2022-10-25 08:29:00 [id number] FBB/000uc0sbjypTnqCTeqDCirMXa9K1 G/P9Y7lh4r421157-19-37T61:29:00 [facility]TIRE REPAIR MECHANIC Admission H PREPORT#:[id number] REPORT STATUS: SignedDATE:10/25/22 TIME: 828 PATIENT: RODNEY GALLEGO UNIT #: [id number]#: [id number] ROOM/BED:: 56 AGE: 67 SEX: F ATTEND: Gurdeep Osborn [facility] AUTHOR: Gurdeep Osborn MD * ALL edits or amendments must be made on the electronic/computer document * History of Present IllnessChief complaint:postmenopausal bleeding. Free Text HPI NotesFree Text HPI Notes:Irregular in timing and volume, has been happening since December. EMS 17mm. Declined office EMB, prefers to move ahead with hysteroscopic sampling; mirena IUD placement for management. H/o difficult IV placement- this is concerning toher- please use u/s for IV placement. Home meds: claritin, diclofenac, atenolol, lisinoprilPMH: morbid obesity, h/o PPH- required blood transfusion; menopause 2010, HTN, sleep apnea, h/o colon fistula s/p repairPSH: cholecystectomy, D C, bone spur x 2, total right knee replacement, colon fistula repairFamily Hx: CAD, HTN, colon cancerSocial Hx: no tobacco, no etoh, no illicits, . retired.NKDA 68" 375lb History Social HistorySmoking status for patients 13 years old or older: Never Smoker Medication/Allergy-Vaccine HxAllergies:Coded Allergies:No Known Allergies (10/12/22) Review of SystemsGU:Reports: vaginal bleeding. Denies: pelvic pain, , vaginal discharge. All systems rev neg: except as marked Physical ExamVS/I OPATIENT WEIGHT: Weight (lb): 359Weight (oz): 15.89Weight (kg): 163.290 Free Text PE NotesFree Text PE Notes:Gen: A Ox3, NADRRR, no murmursCTAB, no wheezingAbd; soft, NT, NDExt: wwp Diagnosis, Assessment PlanProblem List/A P: 1. Postmenopausal bleeding Free Text DxA P NotesFree Text DxA P Notes:Risks/benefits discussed, all questions answered. Plan to proceed with hysteroscopy, dilation and curettage, mirena IUD placement. Risks include pain ,infection, bleeding, damage to surrounding strucutres, need for additional procedures. at 0839 [facility] #:[id number] OF REPORT HPHistory and physical spuxptuigop8217-13-56A45:29:00F. LWZQ00583020-9578HRRjkqwiyty for patient jneeBWLJXGYZDQGQWY4615-70-57P00: 39:21 [facility] 2022-10-12 12:04:00 [id number]/5lKld4Ymz3gIm3FPg I8M7073C4GJgkGqb3qS3WXQT9U7jLo5I AloJvZrdxF201114-71-65C28:04:973 515-4759 [facility] [place] [id number] [place], [place] [address] PATIENT NAME: RODNEY GALLEGO ADMIT DATE: ACCOUNT NO: [id number] ROOM NO: AGE: 67 SEX: F ADMITTING PHYSICIAN: ATTENDING PHYSICIAN: Gurdeep Osborn MD Order:[id number] Reason : PRE-OP / HTN / OBESITY Test Date/Time Stamp:TueOct 12 2022 12:04:27Blood Pressure : / mmHGVent. Rate : 059 BPM Atrial Rate : 059 BPM P-R Int : 142 ms QRS Dur : 086 ms QT Int : 410 ms P-R-T Axes : 019 -28 037 degrees QTc Int : 405 ms Sinus bradycardiaOtherwise normal ECGNo previous ECGs availableConfirmed by GENO STEARNS ([id number]) on 10/16/2022 9:34:15 AM Referred By: DOES_NOT KNOW Confirmed by:GENO STEARNS at 0934 PATIENT NAME: RODNEY GALLEGO .[id number] for patient nnguPYLKSBOGRSGIHF2922-70-22Y98: 34:44 [facility]
--- NOTE | 2023-12-31 04:11 | ER ---
Nurse's Notes [facility] Name: Fany Gallego Age: 68 yrs Sex: Female : 1955 Arrival Date: 12/30/2023 Time: 22:09 Bed DX4 Private MD: Diagnosis: Cellulitis of left lower limb-left foot Presentation: 12/30 22:31 Chief complaint: Patient states: Pt c/o left great toe pain that has gotten tl4 progressively worse since yesterday. Today patient states pain, redness, and swelling has increased and now involves her foot. +weight bearing with pain. Pt denies fever/chills. Coronavirus screen: At this time, the client does not indicate any symptoms associated with coronavirus-19. Ebola Screen: No symptoms or risks identified at this time. Initial Sepsis Screen: Does the patient meet any 2 criteria? No. Patient's initial sepsis screen is negative. Does the patient have a suspected source of infection? No. Patient's initial sepsis screen is negative. Risk Assessment: Do you want to hurt yourself or someone else? Patient reports no desire to harm self or others. Onset of symptoms was December 29, 2023. 22:31 Method Of Arrival: Wheelchair tl4 22:31 Acuity: SHU 3 tl4 Triage Assessment: 22:34 General: Appears uncomfortable, Behavior is calm, cooperative. Pain: Complains of pain tl4 in left foot. EENT: No deficits noted. No signs and/or symptoms were reported regarding the EENT system. Neuro: No deficits noted. Cardiovascular: No deficits noted. Respiratory: No deficits noted. GI: No deficits noted. No signs and/or symptoms were reported involving the gastrointestinal system. : No deficits noted. No signs and/or symptoms were reported regarding the genitourinary system. Derm: No deficits noted. No signs and/or symptoms reported regarding the dermatologic system. Historical: - Allergies: 22:33 No Known Allergies; tl4 - PMHx: 22:33 Hypertensive disorder; tl4 - PSHx: 22:33 Rotator cuff repair; tl4 - Immunization history:: Adult Immunizations unknown. - Social history:: Smoking status: Patient denies any tobacco usage or history of. Screenin:51 [facility] ED Fall Risk Assessment (Adult) History of falling in the last 3 months, tl4 including since admission No falls in past 3 months (0 pts) Confusion or Disorientation No (0 pts) Intoxicated or Sedated No (0 pts) Impaired Gait Yes (1 pt) Mobility Assist Device Used Yes (1 pt) Altered Elimination No (0 pt) Score/Fall Risk Level 0 - 2 = Low Risk Oriented to surroundings, Maintained a safe environment, Educated pt \T\ family on fall prevention, incl call for assistance when getting out of bed, Assessed \T\ reinforced patient's understanding of fall precautions, Provided non-skid footwear, Hourly rounding (assess needs \T\ fall precautionary measures) done, Used ambulatory aids as needed (educated on \T\ assisted with), Used gait belt as appropriate. Abuse screen: Denies threats or abuse. Denies injuries from another. Nutritional screening: No deficits noted. Tuberculosis screening: No symptoms or risk factors identified. Assessment: 12/31 02:23 Reassessment: No changes from previously documented assessment. Patient and/or family vc1 updated on plan of care and expected duration. Pain level reassessed. Patient is alert, oriented x 3, equal unlabored respirations, skin warm/dry/pink. Vital Signs: 12/30 22:31 BP 146 / 88; Pulse 81; Resp 20; Temp 97.6(TE); Pulse Ox 97% on R/A; Weight 167.83 kg; tl4 Height 5 ft. 8 in. ; Pain 8/10; 12/31 02:22 BP 147 / 76; Pulse 69; Resp 18; Temp 98; Pulse Ox 92% ; vc1 12/30 22:31 Body Mass Index 56.26 (167.83 kg, 172.72 cm) tl4 12/30 22:31 Pain Scale: Adult tl4 ED Course: 12/30 22:13 Patient arrived in ED. gm2 22:33 Triage completed. tl4 22:34 Arm band placed on right wrist. tl4 22:37 Ang Nicole PA is PHCP. cp 22:37 Ang Ortiz MD is Attending Physician. cp 23:52 Patient has correct armband on for positive identification. Provided Education on: ed tl4 process. 23:52 No provider procedures requiring assistance completed. tl4 12/31 01:49 US Extremity Venous Unilateral Ltd In Process Unspecified. EDMS 01:49 US Lower Extremity Artery Uni Ltd In Process Unspecified. EDMS 01:58 XRAY Foot LEFT 3 View In Process Unspecified. EDMS 04:32 Patient did not have IV access during this emergency room visit. vc1 Administered Medications: 03:25 Drug: Rocephin (cefTRIAXone) IM 1 grams IM once Route: IM; Site: right deltoid; lg3 04:29 Follow up: Response: No adverse reaction; Marked relief of symptoms vc1 04:28 Drug: Trimethoprim-Sulfamethoxazole PO (160 mg-800 mg (DS) 2 tablet PO once Route: PO; vc1 04:28 Follow up: Response: Medication administered at discharge. vc1 Medication: 12/30 23:51 VIS not applicable for this client. tl4 Outcome: 12/31 04:10 Discharge ordered by MD. cp 04:29 Discharged to home via wheelchair, vc1 04:29 Condition: good 04:29 Discharge instructions given to patient, Instructed on discharge instructions, follow up and referral plans. medication usage, Demonstrated understanding of medications, Prescriptions given X 3, 04:32 Patient left the ED. vc1 Signatures: Dispatcher [employer] EDMS Ang Nicole PA PA cp Able, Lacie RN RN lg3 Griselda Ruggiero RN RN vc1 Maricel Moore gm2 Marshall Hernandez RN RN tl4
--- NOTE | 2023-12-31 04:11 | EDPHYS ---
Physician Documentation [facility] Name: Fany Gallego Age: 68 yrs Sex: Female : 1955 Arrival Date: 12/30/2023 Time: 22:09 Bed DX4 Private MD: ED Physician Ang Ortiz HPI: 12/31 01:00 This 68 yrs old Female presents to ER via Wheelchair with complaints of toe pain, cp redness, swollen, hot to the touch. 01:00 The patient presents with pain, that is acute, swelling, tenderness. The complaints cp affect the left great toe and left foot. Onset: The symptoms/episode began/occurred yesterday, and became worse today. 01:00 Context: resulted from an unknown cause, the patient can fully bear weight, the patient cp is able to ambulate, with moderate difficulty. Associated signs and symptoms: Pertinent positives: warmth, erythema, Pertinent negatives: calf tenderness, fever, numbness. Severity of symptoms: in the emergency department the symptoms are unchanged, despite home interventions. Historical: - Allergies: 12/30 22:33 No Known Allergies; tl4 - PMHx: 22:33 Hypertensive disorder; tl4 - PSHx: 22:33 Rotator cuff repair; tl4 - Immunization history:: Adult Immunizations unknown. - Social history:: Smoking status: Patient denies any tobacco usage or history of. ROS: 12/31 01:05 Constitutional: Negative for body aches, chills, fever, poor PO intake, cp 01:05 Eyes: Negative for injury, pain, redness, and discharge, cp 01:05 ENT: Negative for drainage from ear(s), ear pain, sore throat, difficulty swallowing, difficulty handling secretions, 01:05 Cardiovascular: Negative for chest pain, palpitations, 01:05 Respiratory: Negative for cough, shortness of breath, wheezing, 01:05 Abdomen/GI: Negative for abdominal pain, nausea, vomiting, and diarrhea, 01:05 MS/extremity: Positive for erythema, pain, swelling, tenderness, of the left great toe and left foot, Negative for injury or acute deformity, paresthesias, 01:05 Neuro: Negative for altered mental status, headache, weakness, 01:05 All other systems are negative, Exam: 01:10 Constitutional: The patient appears in no acute distress, alert, awake, cp non-diaphoretic, non-toxic, well developed, well nourished, obese, uncomfortable, 01:10 Head/Face: Normocephalic, atraumatic. cp 01:10 Cardiovascular: Rate: normal, 01:10 Respiratory: the patient does not display signs of respiratory distress, Respirations: normal, no use of accessory muscles, no retractions, labored breathing, is not present, Breath sounds: are clear throughout, no decreased breath sounds, no stridor, no wheezing, 01:10 Abdomen/GI: Exam negative for discomfort, distension, guarding, 01:10 Back: pain, is absent, ROM is normal, 01:10 Musculoskeletal/extremity: Extremities: noted in the left foot: moderate swelling of dorsal foot, erythema of great toe, second and third toes. no open wounds noted, Vital Signs: 12/30 22:31 BP 146 / 88; Pulse 81; Resp 20; Temp 97.6(TE); Pulse Ox 97% on R/A; Weight 167.83 kg; tl4 Height 5 ft. 8 in. ; Pain 8/10; 12/31 02:22 BP 147 / 76; Pulse 69; Resp 18; Temp 98; Pulse Ox 92% ; vc1 12/30 22:31 Body Mass Index 56.26 (167.83 kg, 172.72 cm) tl4 12/30 22:31 Pain Scale: Adult tl4 MDM: 12/30 22:37 Patient medically screened. cp 12/31 04:10 Data reviewed: vital signs, nurses notes, radiologic studies, doppler, plain films. cp 04:10 Differential diagnosis: fracture, gout, cellulitis. I considered the following cp discharge prescriptions or medication management in the emergency department Medications were administered in the Emergency Department. See MAR. Counseling: I had a detailed discussion with the patient and/or guardian regarding the historical points, exam findings, and any diagnostic results supporting the discharge/admit diagnosis, radiology results, the need for outpatient follow up, a family practitioner, to return to the emergency department if symptoms worsen or persist or if there are any questions or concerns that arise at home. Refusal of service: The patient/guardian displays adequate decision making capability and despite a detailed discussion of alternatives, benefits, risks, and consequences refuses: all lab tests. 12/30 23:27 Order name: XRAY Foot LEFT 3 View cp 12/30 23:57 Order name: US Extremity Venous Unilateral Ltd cp 12/30 23:57 Order name: US Lower Extremity Artery Uni Ltd cp Administered Medications: 03:25 Drug: Rocephin (cefTRIAXone) IM 1 grams IM once Route: IM; Site: right deltoid; lg3 04:29 Follow up: Response: No adverse reaction; Marked relief of symptoms vc1 04:28 Drug: Trimethoprim-Sulfamethoxazole PO (160 mg-800 mg (DS) 2 tablet PO once Route: PO; vc1 04:28 Follow up: Response: Medication administered at discharge. vc1 Disposition Summary: 12/31/23 04:10 Discharge Ordered Notes: Location: Home cp Problem: new cp Symptoms: have improved cp Condition: Stable cp Diagnosis - Cellulitis of left lower limb - left foot cp Followup: cp - With: Private Physician - When: 2 - 3 days - Reason: Recheck today's complaints Discharge Instructions: - Discharge Summary Sheet cp - Cellulitis, Adult cp Forms: - Medication Reconciliation Form cp - Thank You Letter cp - Antibiotic Education cp - Prescription Opioid Use cp - Patient Portal Instructions cp - Leadership Thank You Letter cp Prescriptions: - Cephalexin 500 mg Oral Capsule - take 1 capsule ORAL route every 6 hours for 10 days; 40 capsule; Refills: 0, cp Product Selection Permitted - Ibuprofen 800 mg Oral Tablet - take 1 tablet ORAL route every 8 hours As needed take with food; 30 tablet; cp Refills: 0, Product Selection Permitted - Bactrim DS 800-160 mg Oral Tablet - take 1 tablet ORAL route every 12 hours for 10 days; 20 tablet; Refills: 0, cp Product Selection Permitted Signatures: Dispatcher [employer] Ang Reece PA PA cp Able, Lacie RN RN lg3 Griselda Ruggiero, RN RN vc1 Marshall Hernandez RN RN tl4
[2023-12-31 04:45] VITALS: BP 147/76; TEMP 98; O2SAT 92
--- NOTE | 2023-12-31 09:58 | RAD REPORT ---
EXAM DESCRIPTION: US - Lower Extremity Artery Uni Ltd - 12/31/2023 1:47 am CLINICAL HISTORY: PAIN COMPARISON: No comparisons TECHNIQUE: Left lower extremity arterial Doppler examination was performed with waveform tracing. FINDINGS: Poor penetration somewhat limits evaluation. Triphasic waveforms are seen throughout along the left lower extremity to the level of the distal SFA and again along the dorsalis pedis artery. Biphasic waveforms are seen along the popliteal and poste rior tibial arteries. IMPRESSION: Mild peripheral vascular disease.
--- NOTE | 2023-12-31 20:21 | RAD REPORT ---
EXAM DESCRIPTION: US - Extremity Venous Uni Ltd - 12/31/2023 1:47 am CLINICAL HISTORY: The patient is 68 years old and is Female; Pain;Swelling TECHNIQUE: Real-time duplex ultrasound scan of the left lower extremity veins integrating B-mode two -dimensional vascular structure, Doppler spectral analysis, color flow Doppler imaging and Impression . COMPARISON: No relevant prior studies available. FINDINGS: Deep veins: Unremarkable. No DVT in the visualized common femoral, femoral, or poplite al veins. The veins demonstrate normal color flow, are normally compressible where visualized, with normal phasic flow and/or augmentation response. Soft tissues: No acute findings. IMPRESSION: No evidence of DVT in the left lower extremity veins. Electronically signed by: Branden Todd MD 12/31/2023 02:41 AM [employer] Due to temporary technical issues with the PACS/Fluency reporting system, reports are being signed by the in house radiologists without review as a courtesy to insure prompt reporting. The interpreting radiologist is fully responsible for the content of the report.
--- NOTE | 2023-12-31 20:54 | RAD REPORT ---
EXAM DESCRIPTION: RAD - Foot Left 3 View - 12/31/2023 1:56 am CLINICAL HISTORY: Toe pain COMPARISON: None. TECHNIQUE: XR FOOT 3 OR MORE VIEWS LEFT 12/30/2023 11:27 PM METAL DEALER FINDINGS: There is no fracture. There are mild degenerative changes throughout the midfoot. There is diffuse soft tissue swelling. There is a small calcaneal spur. IMPRESSION: No acute osseous findings. Electronically signed by: Abram Xie MD 12/31/2023 02:44 AM METAL DEALER Due to temporary technical issues with the PACS/Fluency reporting system, reports are being signed by the in house radiologists without review as a courtesy to insure prompt reporting. The interpreting radiologist is fully responsible for the content of the report.
== END ==
LOC: ER 22:09
DX: L03.116 Cellulitis of left lower limb (principal); I10 Essential (primary) hypertension
CPT/HCPCS: 93926; 93971; 96372; 99284